=== PATIENT | female | born 1985 | race American Indian/Alaskan Native ===

== ENCOUNTER 2017-03-16 09:53 | Emergency (ER) | payer BC ==
[2017-03-16 10:26] VITALS: BP 117/80
[2017-03-16] MEDS ORDERED: NORCO 5/325 PO ONE (11:23)
[2017-03-16] MEDS ORDERED: BACTRIM DS PO ONE (11:23)
[2017-03-16] MEDS ORDERED: MARCAINE 0.5% INFILTRATI ONE (11:23)
[2017-03-16] MEDS ORDERED: KEFLEX PO ONE (11:23)
[2017-03-16] MEDS ORDERED: BOOSTRIX IM ONE (11:23)
--- NOTE | 2017-03-16 11:30 | Emergency Department Report ---
ED Extremity Problem HPI - General Chief complaint: Extremity Injury, Lower Stated complaint: RT FOOT BIG TOE REDNESS/PAIN Time Seen by Provider: 03/16/17 11:19 Source: patient, family Mode of arrival: Ambulatory Limitations: No Limitations - History of Present Illness Initial comments: PT states she has had an in grown toe nail forever. PT states for 5 days she had had pain and swelling to R great toe. PT states she has noticed drainage for 2 days. PT states she has a hx of trauma to that toe and states previously she had lost her toe nail and it did not grow back straight. PT states she had NKDA. PT states she has tried warm soaks for her toe but no improvement. MD Complaint: extremity pain -: Gradual, days(s) (5) Location: right, lower extremity, toe (great toe ) History of Same: Yes (but not as bad ) -: No fever Severity scale (0 -10): 10 Quality: constant Consistency: constant Improves with: nothing Worsens with: weight bearing, walking, other (putting on a sock ) Associated Symptoms: denies other symptoms - Related Data Previous Rx's Medication Instructions Recorded Last Taken Type Acetaminophen/Codeine [Tylenol #3] 1 tab PO Q6H PRN #12 tab 03/16/17 Unknown Rx Cephalexin [Keflex] 500 mg PO Q6HR #40 capsule 03/16/17 Unknown Rx Ibuprofen [Motrin] 600 mg PO Q8H PRN #15 tablet 03/16/17 Unknown Rx Sulfamethoxazole/Trimethoprim 1 each PO BID #20 tablet 03/16/17 Unknown Rx [Bactrim DS TAB] ED Review of Systems ROS: Stated complaint: RT FOOT BIG TOE REDNESS/PAIN Other details as noted in HPI Comment: Unobtainable due to pts medical conditions Constitutional: denies: chills, fever Gastrointestinal: denies: nausea, vomiting Genitourinary: denies: abnormal menses Musculoskeletal: as per HPI (toe pain ) Skin: change in color (redness ), other (drainage from R great toe ) ED Past Medical Hx - Surgical History Hx Cholecystectomy: Yes Additional Surgical History: Hemrroidectomy 2007, -2003, cholecytectomy 2005, hernia repair 1991 - Social History Smoking Status: Current Every Day Smoker Substance Use Type: Alcohol - Medications Home Medications: Home Medications Medication Instructions Recorded Confirmed Last Taken Type Acetaminophen/Codeine [Tylenol #3] 1 tab PO Q6H PRN #12 tab 03/16/17 Unknown Rx Cephalexin [Keflex] 500 mg PO Q6HR #40 capsule 03/16/17 Unknown Rx Ibuprofen [Motrin] 600 mg PO Q8H PRN #15 tablet 03/16/17 Unknown Rx Sulfamethoxazole/Trimethoprim 1 each PO BID #20 tablet 03/16/17 Unknown Rx [Bactrim DS TAB] ED Physical Exam - General Limitations: No Limitations General appearance: alert, in no apparent distress - Head Head exam: Present: atraumatic, normocephalic, normal inspection - Eye Eye exam: Present: normal appearance, EOMI. Absent: conjunctival injection, nystagmus - ENT ENT exam: Present: normal exam, normal external ear exam - Neck Neck exam: Present: normal inspection, full ROM - Respiratory Respiratory exam: Absent: respiratory distress, accessory muscle use - Cardiovascular Cardiovascular Exam: Present: regular rate, normal rhythm - Extremities Exam Extremities exam: Present: full ROM, tenderness, normal capillary refill. Absent: pedal edema, joint swelling - Expanded Upper Extremity Exam Left General: Present: normal inspection Right General: Present: normal inspection - Expanded Lower Extremity Exam Left Foot/Toe exam: Present: normal inspection, full ROM Neuro vascular tendon exam: Present: no vascular compromise Right Foot/Toe exam: Present: full ROM, tenderness, swelling, erythema (Swelling, erythema and tenderness to R medial great toe nail fold ). Absent: normal inspection Neuro vascular tendon exam: Present: no vascular compromise. Absent: abnormal cap refill Gait: Positive: antalgic - Back Exam Back exam: Present: normal inspection, full ROM - Neurological Exam Neurological exam: Present: alert, oriented X3 - Psychiatric Psychiatric exam: Present: normal affect, normal mood - Skin Skin exam: Present: warm, dry, intact ED Course Vital Signs 03/16/17 10:09 Temperature 98.3 F Pulse Rate 92 H Respiratory 16 Rate Blood Pressure 117/80 O2 Sat by Pulse 100 Oximetry - Reevaluation(s) Reevaluation #1: 03/16/17 11:37 PT wanting ingrown toe nail removed. Pt aware of plan of care. Reevaluation #2: 03/16/17 12:50 PT tolerated the ingrown toe nail removal. Pt given strict return precautions. PT has no questions at this time. 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 ingrown toe nail trimmed with scissors. + small amount of purulent drainage noted. Site flushed with NS. Pt tolerated the procedure well. - Pulse Oximetry Interpretation Digit-Finger Initial Pulse Oximetry Readin Actions Taken: none ED Medical Decision Making - Differential Diagnosis cellulitis, abscess, ingrown toe nail Critical Care Time: No Critical care attestation.: If time is entered above; I have spent that time in minutes in the direct care of this critically ill patient, excluding procedure time. ED Disposition Clinical Impression: Ingrowing toenail with infection Disposition: TO HOME OR SELFCARE Is pt being admited?: No Does the pt Need Aspirin: No Condition: Stable Instructions: Ingrown Nail (ED) Additional Instructions: No driving or alcohol after taking Tylenol #3 Take antibiotics as instructed Return to ED in 2 days for recheck Return sooner if increase in redness, swelling, pain or you develop fevers, chills, nausea or vomiting Prescriptions: Acetaminophen/Codeine [Tylenol #3] 1 tab PO Q6H PRN #12 tab PRN Reason: Pain , Severe (7-10) Cephalexin [Keflex] 500 mg PO Q6HR #40 capsule Ibuprofen [Motrin] 600 mg PO Q8H PRN #15 tablet PRN Reason: Pain Sulfamethoxazole/Trimethoprim [Bactrim DS TAB] 1 each PO BID #20 tablet Referrals: PRIMARY CAREMD [Primary Care Provider] - 3-5 Days NITESH TROTTER MD [Staff Physician] - 3-5 Days Forms: Work/School Release Form(ED) Time of Disposition: 12:50
[2017-03-16] MEDS ORDERED: TRIPLE ANTIBIOTIC TP ONE (12:47)
== END 2017-03-16 13:10 | disposition home or self-care (01) ==
LOC: ED 09:53
DX: L60.0 Ingrowing nail (principal); L08.89 Other specified local infections of the skin and subcutaneous tissue; F17.200 Nicotine dependence, unspecified, uncomplicated
CPT/HCPCS: 90471; 90715; A6250

== ENCOUNTER 2018-10-30 11:00 | Emergency (ER) | payer BC, OTHER ==
--- NOTE | 2018-10-30 11:11 | Emergency Department Report ---
Blank Doc - Documentation Documentation: This is a 33-year-old female that presents with URI symptoms. Stated that has chest pain only when coughing. This initial assessment/diagnostic orders/clinical plan/treatment(s) is/are subject to change based on patient's health status, clinical progression and re- assessment by fellow clinical providers in the ED. Further treatment and workup at subsequent clinical providers discretion. Patient/guardians urged not to elope from the ED as their condition may be serious if not clinically assessed and managed. Initial orders include: 1- Patient sent to [facility] for further evaluation and treatment 2- CXR
[2018-10-30 11:12] VITALS: BP 136/94
[2018-10-30] MEDS ORDERED: SOLU-Medrol IM ONE (11:44)
--- NOTE | 2018-10-30 11:44 | Emergency Department Report ---
ED General Adult HPI - General Chief complaint: Upper Respiratory Infection Stated complaint: CHEST PAIN/SOB Time Seen by Provider: 10/30/18 11:10 Source: patient Mode of arrival: Ambulatory Limitations: No Limitations - History of Present Illness Initial comments: Patient is 33 years old female with no significant past medical history. Patient stated that she was doing well until 2 months ago when she started having excessive coughing with whitish mucus. Patient stated that her symptoms is worse at night. Patient denied any fever, shortness of breath, nausea or vomiting. Patient also complaining of runny nose and congestion. Severity scale (0 -10): 0 - Related Data Previous Rx's Medication Instructions Recorded Last Taken Type Acetaminophen/Codeine [Tylenol #3] 1 tab PO Q6H PRN #12 tab 03/16/17 Unknown Rx Ibuprofen [Motrin] 600 mg PO Q8H PRN #15 tablet 03/16/17 Unknown Rx Sulfamethoxazole/Trimethoprim 1 each PO BID #20 tablet 03/16/17 Unknown Rx [Bactrim DS TAB] cephALEXin [Keflex] 500 mg PO Q6HR #40 capsule 03/16/17 Unknown Rx Allergies Allergy/AdvReac Type Severity Reaction Status Date / Time No Known Allergies Allergy Verified 10/30/18 11:02 ED Review of Systems ROS: Stated complaint: CHEST PAIN/SOB Other details as noted in HPI Comment: All other systems reviewed and negative Constitutional: denies: chills, fever Respiratory: cough. denies: orthopnea, shortness of breath, SOB with exertion, SOB at rest, wheezing Cardiovascular: denies: chest pain Gastrointestinal: denies: abdominal pain, nausea, vomiting, diarrhea, constipation, hematemesis, melena, hematochezia ED Past Medical Hx - Past Medical History Previous Medical History?: No - Surgical History Past Surgical History?: Yes Hx Cholecystectomy: Yes Additional Surgical History: Hemrroidectomy 2007, -2003, cholecytectomy 2005, hernia repair 1991 - Social History Smoking Status: Current Some Day Smoker Substance Use Type: None - Medications Home Medications: Home Medications Medication Instructions Recorded Confirmed Last Taken Type Acetaminophen/Codeine [Tylenol #3] 1 tab PO Q6H PRN #12 tab 03/16/17 Unknown Rx Ibuprofen [Motrin] 600 mg PO Q8H PRN #15 tablet 03/16/17 Unknown Rx Sulfamethoxazole/Trimethoprim 1 each PO BID #20 tablet 03/16/17 Unknown Rx [Bactrim DS TAB] cephALEXin [Keflex] 500 mg PO Q6HR #40 capsule 03/16/17 Unknown Rx ED Physical Exam - General Limitations: No Limitations General appearance: alert, in no apparent distress - Head Head exam: Present: atraumatic, normocephalic, normal inspection - Eye Eye exam: Present: normal appearance, PERRL - ENT ENT exam: Present: normal exam, normal orophraynx, mucous membranes moist - Neck Neck exam: Present: normal inspection, full ROM. Absent: tenderness, meningismus, lymphadenopathy, thyromegaly - Respiratory Respiratory exam: Present: normal lung sounds bilaterally. Absent: respiratory distress, wheezes, rales, rhonchi, chest wall tenderness, accessory muscle use, decreased breath sounds, prolonged expiratory - Cardiovascular Cardiovascular Exam: Present: regular rate, normal rhythm, normal heart sounds - GI/Abdominal GI/Abdominal exam: Present: soft, normal bowel sounds. Absent: distended, tenderness, guarding, rebound, rigid, organomegaly, mass, bruit, pulsatile mass, hernia - Extremities Exam Extremities exam: Present: normal inspection, full ROM, normal capillary refill - Back Exam Back exam: Present: normal inspection, full ROM. Absent: tenderness, CVA tenderness (R), CVA tenderness (L), muscle spasm, paraspinal tenderness, vertebral tenderness - Neurological Exam Neurological exam: Present: alert, oriented X3, CN II-XII intact, normal gait, reflexes normal - Skin Skin exam: Present: warm, intact, normal color ED Course Vital Signs 10/30/18 11:10 Temperature 98.6 F Pulse Rate 106 H Respiratory 16 Rate Blood Pressure 136/94 O2 Sat by Pulse 99 Oximetry ED Medical Decision Making - Radiology Data Radiology results: report reviewed Referring Physician: KAREN QUINTEROS Patient Name: AMINA OZUNA Date of : 1985 Sex: Female Report Date: 2018-10-30 Report Status: Finalized Findings [facility] [address] [place] [address] XRay Report Signed Patient: AMINA OZUNA MR#: [id number] : 1985 Acct:[id number] Age/Sex: 33 / F ADM Date: 10/30/18 Loc: ED Attending Dr: Ordering Physician: KAREN QUINTEROS NP Date of Service: 10/30/18 Procedure(s): XR chest routine 2V Accession Number(s): [id number] cc: KAREN QUINTEROS NP Fluoro Time In Minutes: ROUTINE CHEST, TWO VIEWS: HISTORY: Cough. The trachea, heart, mediastinal contour, lung sykes and bony thorax are unremarkable. IMPRESSION: Unremarkable chest x-ray. Transcribed By: TTR Dictated By: RICH CABALLERO JR, MD Electronically Authenticated By: RICH CABALLERO JR, MD Signed Date/Time: 10/30/181206 DD/ 06 TD/TT: 10/30/181206 Critical care attestation.: If time is entered above; I have spent that time in minutes in the direct care of this critically ill patient, excluding procedure time. ED Disposition Clinical Impression: Bronchitis Disposition: DC-01 TO HOME OR SELFCARE Is pt being admited?: No Condition: Stable Instructions: Acute Bronchitis (ED) [facility]errals: [facility] [Other] - 3-5 Days
--- NOTE | 2018-10-30 12:29 | XRay Report ---
ROUTINE CHEST, TWO VIEWS: HISTORY: Cough. The trachea, heart, mediastinal contour, lung sykes and bony thorax are unremarkable. IMPRESSION: Unremarkable chest x-ray.
== END 2018-10-30 12:44 | disposition home or self-care (01) ==
LOC: ED 11:00
DX: J40 Bronchitis, not specified as acute or chronic (principal); Z90.49 Acquired absence of other specified parts of digestive tract; F17.200 Nicotine dependence, unspecified, uncomplicated
CPT/HCPCS: 71046; 96372; 99283; J2930

== ENCOUNTER 2020-01-03 18:01 | Inpatient (IN) | payer OTHER ==
--- NOTE | 2020-01-03 18:22 | Event Note ---
ED Screening Note ED Screening Note: states that she has been vomiting for a week states she feels lightheaded states that on 12/29 she drank a pint of ETOH states she drinks 1/2 a pint a day no diarrhea states she was having dysuria PMHx none no allergies to meds LNMP: 12/15/2019 This initial assessment/diagnostic orders/clinical plan/treatment(s) is/are subject to change based on patients health status, clinical progression and re- assessment by fellow clinical providers in the ED. Further treatment and workup at subsequent clinical providers discretion. Patient/guardian urged not to elope from the ED as their condition may be serious if not clinically assessed and managed. Initial orders include: labs, UA, urine preg
[2020-01-03 18:38] LABS: Basophils % (Auto) 0.2 % (0.0-1.8); Hemoglobin 15.4 gm/dl (10.1-14.3); Lymphocytes # (Auto) 0.4 K/mm3 (1.2-5.4); Lymphocytes % (Auto) 3.5 % (13.4-35.0); Monocytes # (Auto) 1.2 K/mm3 (0.0-0.8); Monocytes % (Auto) 10.1 % (0.0-7.3)
[2020-01-03 18:54] LABS: Hematocrit 44.5 % (30.3-42.9); Mean Corpuscular HGB Conc 35 % (30-34); Mean Corpuscular Volume 110 fl (79-97); Platelet Count 119 K/mm3 (140-440); Red Blood Count 4.06 M/mm3 (3.65-5.03); Red Cell Distribution Width 18.4 % (13.2-15.2)
[2020-01-03 19:02] LABS: Alanine Aminotransferase 77 units/L (7-56); Albumin 3.7 g/dL (3.9-5); BUN/Creatinine Ratio 16; Blood Urea Nitrogen 11 mg/dL (7-17); Calcium 9.9 mg/dL (8.4-10.2); Hemolysis Index 16
[2020-01-03] MEDS ORDERED: ONDANSETRON 4 MG/2 ML INJ ONE (19:26)
[2020-01-03] MEDS ORDERED: THIAMINE 100 MG, FOLIC ACID 1 MG, MULTIPLE VITAMIN INJ, ADULT 10 ML in SODIUM CHLORIDE ... IV ONE (19:30)
[2020-01-03] MEDS ORDERED: DEXTROSE 50% IN WATER (25GM) 50 ML SYRINGE IV ONE (19:30)
[2020-01-03] MEDS ORDERED: SODIUM CHLORIDE 0.9% 1000 ML 1,000 ML IV ONE ×3 (19:30→21:24)
[2020-01-03] MEDS ORDERED: CALCIUM CHLORIDE 1,000 MG in SODIUM CHLORIDE 0.9% 100 ML IV ONE (19:30)
[2020-01-03] MEDS ORDERED: INSULIN REGULAR, HUMAN 100 UNITS/1 ML IV ONE (19:30)
[2020-01-03] MEDS ORDERED: ONDANSETRON 4 MG/2 ML INJ IV ONE (19:31)
--- NOTE | 2020-01-03 19:42 | Emergency Department Report ---
ED General Adult HPI - General Chief complaint: Nausea/Vomiting/Diarrhea Stated complaint: VOMITING PUI?: No Time Seen by Provider: 01/03/20 19:29 Source: patient Mode of arrival: Ambulatory Limitations: No Limitations - History of Present Illness Initial comments: Patient is a 34-year-old female that presents emergency room with complaints of nausea and vomiting x5 days. Patient states 4 days ago she drank a lot of alcohol and has been vomiting ever since. Patient states she thinks she has alcohol poisoning. Patient states she has not alcohol since. Patient denies chest pain. Patient denies shortness of breath. Patient complains of epigastric pain. Patient states epigastric pain is a 10 out of 10. Patient states the pain is worse with movement and vomiting. Patient states the pain is better with rest. Patient denies fever and chills. Patient denies blood in her vomitus. Patient states she drinks regularly. Patient denies seizure. Patient denies shaking. Patient denies anxiety. Patient denies recent travel. Patient denies recent international travel. Patient denies exposure to the novel coronavirus. Patient denies sick contacts. Patient denies fever and chills. Patient denies cough. Patient denies diarrhea. Patient denies coming in contact with anybody with symptoms of the novel coronavirus. -: Gradual Radiation: abdomen Severity scale (0 -10): 10 Quality: burning Consistency: constant Improves with: rest Worsens with: movement, other Associated Symptoms: nausea/vomiting. denies: confusion, chest pain, cough, diaphoresis, fever/chills, headaches, loss of appetite, malaise, rash, seizure, shortness of breath, syncope, weakness Treatments Prior to Arrival: none - Related Data Previous Rx's Medication Instructions Recorded Last Taken Type Acetaminophen/Codeine [Tylenol #3] 1 tab PO Q6H PRN #12 tab 03/16/17 Unknown Rx Ibuprofen [Motrin] 600 mg PO Q8H PRN #15 tablet 03/16/17 Unknown Rx Sulfamethoxazole/Trimethoprim 1 each PO BID #20 tablet 03/16/17 Unknown Rx [Bactrim DS TAB] cephALEXin [Keflex] 500 mg PO Q6HR #40 capsule 03/16/17 Unknown Rx Albuterol INH(or & Nicu Only) 2 puff IH QID PRN #1 inhalation 10/30/18 Unknown Rx [ProAir HFA Inhaler] Azithromycin [Zithromax Z-SHARON] 250 mg PO DAILY 1 Days tab 10/30/18 Unknown Rx Prednisone [predniSONE 10 mg 10 mg PO .TAPER #1 tab.ds.pk 10/30/18 Unknown Rx (6-Day Pack, 21 Tabs)] guaiFENesin/CODEINE [Robitussin AC] 10 ml PO TID PRN #100 ml 10/30/18 Unknown Rx Allergies Allergy/AdvReac Type Severity Reaction Status Date / Time No Known Allergies Allergy Verified 10/30/18 11:02 ED Review of Systems ROS: Stated complaint: VOMITING Other details as noted in HPI Constitutional: denies: chills, fever Eyes: denies: eye pain, eye discharge, vision change ENT: denies: ear pain, throat pain Respiratory: denies: cough, shortness of breath, wheezing Cardiovascular: denies: chest pain, palpitations Endocrine: no symptoms reported Gastrointestinal: abdominal pain, nausea, vomiting. denies: diarrhea Genitourinary: denies: urgency, dysuria, discharge Musculoskeletal: denies: back pain, joint swelling, arthralgia Skin: denies: rash, lesions Neurological: denies: headache, weakness, paresthesias Psychiatric: denies: anxiety, depression Hematological/Lymphatic: denies: easy bleeding, easy bruising ED Past Medical Hx - Past Medical History Previous Medical History?: No - Surgical History Past Surgical History?: Yes Hx Cholecystectomy: Yes Additional Surgical History: Hemrroidectomy 2007, -2003, cholecytectomy 2005, hernia repair 1991 - Family History Family history: no significant - Social History Smoking Status: Current Every Day Smoker Substance Use Type: Alcohol, Marijuana - Medications Home Medications: Home Medications Medication Instructions Recorded Confirmed Last Taken Type Acetaminophen/Codeine [Tylenol #3] 1 tab PO Q6H PRN #12 tab 03/16/17 Unknown Rx Ibuprofen [Motrin] 600 mg PO Q8H PRN #15 tablet 03/16/17 Unknown Rx Sulfamethoxazole/Trimethoprim 1 each PO BID #20 tablet 03/16/17 Unknown Rx [Bactrim DS TAB] cephALEXin [Keflex] 500 mg PO Q6HR #40 capsule 03/16/17 Unknown Rx Albuterol INH(or & Nicu Only) 2 puff IH QID PRN #1 inhalation 10/30/18 Unknown Rx [ProAir HFA Inhaler] Azithromycin [Zithromax Z-SHARON] 250 mg PO DAILY 1 Days tab 10/30/18 Unknown Rx Prednisone [predniSONE 10 mg 10 mg PO .TAPER #1 tab.ds.pk 10/30/18 Unknown Rx (6-Day Pack, 21 Tabs)] guaiFENesin/CODEINE [Robitussin AC] 10 ml PO TID PRN #100 ml 10/30/18 Unknown Rx ED Physical Exam - General Limitations: No Limitations General appearance: alert, in no apparent distress - Head Head exam: Present: atraumatic, normocephalic - Eye Eye exam: Present: normal appearance - ENT ENT exam: Present: mucous membranes moist - Neck Neck exam: Present: normal inspection - Respiratory Respiratory exam: Present: normal lung sounds bilaterally. Absent: respiratory distress - Cardiovascular Cardiovascular Exam: Present: regular rate, normal rhythm. Absent: systolic murmur, diastolic murmur, rubs, gallop - GI/Abdominal GI/Abdominal exam: Present: soft, tenderness (Epigastric tenderness to palpation.), normal bowel sounds - Extremities Exam Extremities exam: Present: normal inspection - Back Exam Back exam: Present: normal inspection - Neurological Exam Neurological exam: Present: alert, oriented X3 - Psychiatric Psychiatric exam: Present: normal affect, normal mood - Skin Skin exam: Present: warm, dry, intact, normal color. Absent: rash ED Course Vital Signs 01/03/20 01/03/20 01/03/20 18:06 19:58 20:30 Temperature 101.0 F H Pulse Rate 82 107 H Respiratory 18 18 22 Rate Blood Pressure 125/90 119/85 O2 Sat by Pulse 96 99 Oximetry - Reevaluation(s) Reevaluation #1: The nurse asked me to see the patient since the patient has a potassium of 7.7. However after I reviewed the labs the lab reported as 2.7. I will call the lab to confirm the potassium level prior to initiating treatment. 01/03/20 19:29 Potassium verified with lab and it is 2.7. Patient will be given potassium re placement and will check the mag level. 01/03/20 19:52 Reevaluation #2: I discussed all results with patient. I discussed plan of care with patient. Patient agrees with plan of care and admission. Patient to be admitted to the hospitalist service. 01/03/20 21:26 - Consultations Consultation #1: Hospitalist consulted for admission. Hospitalist to admit patient.. Bridge orders placed. 01/03/20 21:26 ED Medical Decision Making - Lab Data Result diagrams: 01/03/20 18:23 01/03/20 18:23 - Radiology Data Radiology results: report reviewed CT report reviewed and is positive for pyelonephritis. - Medical Decision Making Patient is a 34-year-old female that presents emergency room with intractable nausea vomiting, epigastric abdominal pain and alcohol abuse. Patient stated she was having alcohol poisoning due to heavy drinking 5 days ago. Patient has been vomiting since drinking 5 days ago. Patient found to be febrile and have an elevated WBC and abnormal chemistry. Patient then had a CT scan to rule out a small bowel obstruction and findings consistent with pyelonephritis were found. Patient also found to have a UTI. Patient given 2 g of Rocephin and multiple liters of fluid. Patient also given a banana bag due to her alcohol use. Patient admitted to the hospitalist service. - Differential Diagnosis Fever, UTI, intractable nausea vomiting, epigastric pain, gastritis Critical Care Time: Yes Critical care time in (mins) excluding proc time.: 35 Critical care attestation.: If time is entered above; I have spent that time in minutes in the direct care of this critically ill patient, excluding procedure time. Critical Care Time: 35 minutes ED Disposition Clinical Impression: Pyelonephritis, SIRS (systemic inflammatory response syndrome), Hyponatremia Abdominal pain Qualifiers: Abdominal location: epigastric Qualified Code(s): R10.13 - Epigastric pain Nausea & vomiting Qualifiers: Vomiting type: unspecified Vomiting Intractability: intractable Qualified Code(s): R11.2 - Nausea with vomiting, unspecified UTI (urinary tract infection) Qualifiers: Urinary tract infection type: acute cystitis Hematuria presence: with hematuria Qualified Code(s): N30.01 - Acute cystitis with hematuria Fever Qualifiers: Fever type: unspecified Qualified Code(s): R50.9 - Fever, unspecified Disposition: DC-09 OP ADMIT IP TO THIS HOSP Is pt being admited?: Yes Does the pt Need Aspirin: No Condition: Critical Time of Disposition: 21:27
--- NOTE | 2020-01-03 20:30 | Cat Scan Report ---
CT abdomen pelvis w con INDICATION: Abdominal pain, intractable nausea and vomiting . TECHNIQUE: All CT scans at this location are performed using the following dose modulation technique: Automated exposure control. Helical slices were obtained through the abdomen and pelvis following the administr ation of 100 cc of Omnipaque 300 COMPARISON: None available. FINDINGS: Abdomen: There is a calcified granuloma in the left lung base. There is fatty infiltration of the hazel er. The spleen, pancreas, right adrenal gland, and right kidney show no acute abnormality. There is a 12 mm nodule in the left adrenal gland. There is abnormal enhancement throughout the left kidney. This shows striated enhancement pattern. Th e appearance is most characteristic of pyelonephritis. There is no hydronephrosis. There are no urete ral calculi. There is no bowel obstruction. There is no free air. There are no abnormal fluid collections. There is some fluid noted in the cecum. There is no CT evidence of appendicitis there is no inflammat ion. Bowel is unremarkable. There is a 2.2 cm cyst in the left ovary. On review of bone windows, no acute osseous abnormalities are seen. IMPRESSION: There is left pyelonephritis. There is fatty infiltration of the liver. There is no obstruction or free air. There is a small left ovarian cyst. Signer Name: Kali Rivera MD Signed: 01/03/2020 8:26 PM Workstation Name: [id number]
[2020-01-03 20:35] LABS: Bilirubin,Urine MOD (Negative); Blood,Urine SM (Negative); Color,Urine Amber (Yellow); Mucus,Urine 3+ /HPF
[2020-01-03 20:37] LABS: WBC,Urine > 182.0 /HPF (0.0-6.0)
[2020-01-03 20:50] LABS: Ictotest,Urine Negative (Negative)
[2020-01-03] MEDS ORDERED: cefTRIAXone/NS 2 GM/100 ML 2 GM/100 ML BAG IV ONE (21:22)
[2020-01-03] MEDS ORDERED: HYDROmorphone 1 MG/1 ML INJ ONE (21:44)
[2020-01-03] MEDS ORDERED: HYDROmorphone 1 MG/1 ML INJ IV ONE (21:53)
[2020-01-03] MEDS: POTASSIUM CHLORIDE 10 MEQ 10 MEQ/100 ML BAG IV SCH ×2 (22:17→23:27)
[2020-01-03] MEDS ORDERED: POTASSIUM CHLORIDE 10 MEQ 10 MEQ/100 ML BAG IV ONE (23:16)
[2020-01-03] MEDS ORDERED: PIPERACILLIN/TAZOBACTAM 3.375 3.375 GM/50 ML BAG IV SCH (23:45)
[2020-01-04] MEDS: POTASSIUM CHLORIDE 10 MEQ 10 MEQ/100 ML BAG IV SCH ×9 (00:25→22:56)
[2020-01-04] MEDS: PIPERACIL/TAZOBACTA 4.5/NS 100 4.5 GM/100 ML VIAL IV SCH ×4 (00:28→21:00)
[2020-01-04] MEDS: SODIUM CHLORIDE 0.9% 1000 ML 1,000 ML IV SCH (00:30)
[2020-01-04] MEDS: ONDANSETRON 4 MG/2 ML INJ IV PRN ×3 (00:31→20:57)
[2020-01-04] MEDS: MORPHINE 2 MG/1 ML INJ IV PRN ×4 (00:31→20:56)
[2020-01-04] MEDS: HEPARIN 5,000 UNIT/1 ML VIAL SUB-Q SCH ×3 (00:31→21:00)
--- NOTE | 2020-01-04 04:55 | History and Physical Report ---
History of Present Illness Date of examination: 01/03/20 Date of admission: 01/03/20 23:36 Chief complaint: Nausea and vomiting History of present illness: 34 year old female presenting with nausea and vomting going on for about 5 days. There is history of epigastric abdominal pain . There is no fever,chills,cough,chest pain or shortness of breath. Patient admitted to drinking alcohol a lot before these symptom. Past History Past Surgical History: cholecystectomy, , hernia repair, Other (1. Hemoroidectomy 2. Dilatation and Curratage) Social history: smoking, alcohol abuse, other (marijuana) Medications and Allergies Allergies Allergy/AdvReac Type Severity Reaction Status Date / Time No Known Allergies Allergy Verified 10/30/18 11:02 Home Medications Medication Instructions Recorded Confirmed Last Taken Type No Known Home Medications [No 01/03/20 01/03/20 Unknown History Reported Home Medications] Active Meds: Active Medications Acetaminophen (Tylenol) 650 mg PO Q4H PRN PRN Reason: Fever >101 Heparin Sodium (Porcine) (Heparin) 5,000 unit SUB-Q Q12HR SUJIT Last Admin: 01/04/20 00:31 Dose: 5,000 unit Documented by: Sodium Chloride (Nacl 0.9% 1000 Ml) 1,000 mls @ 125 mls/hr IV DIRECT SUJIT Last Admin: 01/04/20 00:30 Dose: 125 mls/hr Documented by: Piperacillin Sod/Tazobactam Sod (Zosyn/Ns 4.5gm/100ml) 4.5 gm in 100 mls @ 200 mls/hr IV Q8HR SUJIT; Protocol Last Admin: 01/04/20 00:28 Dose: 200 mls/hr Documented by: Morphine Sulfate (Morphine) 2 mg IV Q4H PRN PRN Reason: Pain, Moderate (4-6) Last Admin: 01/04/20 00:31 Dose: 2 mg Documented by: Ondansetron HCl (Zofran) 4 mg IV Q8H PRN PRN Reason: Nausea And Vomiting Last Admin: 01/04/20 00:31 Dose: 4 mg Documented by: Review of Systems Constitutional: no weight loss, no weight gain, no fever, no chills, no sweats, no fatigue, no weakness, no malaise Eyes: bilateral: other (NO BILATERAL EYE SYMPTOMS) Ears, nose, mouth and throat: no ear pain, no ear discharge, no nose pain, no nasal congestion, no nasal discharge, no sinus pressure, no dental pain, no mouth pain, no dysphagia, no hoarseness, no sore throat, no swelling in mouth, no headache, no vertigo Breasts: deferred Cardiovascular: no chest pain, no palpitations, no syncope, no lightheadedness, no shortness of breath, no high blood pressure Respiratory: no cough, no excessive sputum, no hemoptysis, no shortness of breath, no dyspnea on exertion, no congestion, no wheezing, no pleurisy Gastrointestinal: abdominal pain, nausea, vomiting, no diarrhea, no constipation, no change in bowel habits, no melena, no hematochezia, no heartburn, no indigestion, no jaundice Genitourinary Female: no flank pain, no dysuria, no urinary frequency, no urgency, no stress incontinence, no post void dribbling, no hematuria Menstruation: no postmenopausal Rectal: no pain, no itching Musculoskeletal: no neck stiffness, no neck pain, no low back pain, no shooting leg pain, no muscle weakness, no muscle cramps, no myalgias, no arthritis Integumentary: no rash, no pruritis, no redness, no sores, no jaundice, no depigmentation Neurological: no paralysis, no weakness, no numbness, no seizures, no syncope, no vertigo, no headaches, no convulsions Psychiatric: no anxiety, no insomnia, no suicidal ideation, no hallucinations, no confusion Endocrine: no cold intolerance, no heat intolerance, no polydipsia, no polyuria, no nocturia, no excessive sweating, no palpatations, no high blood sugars Hematologic/Lymphatic: no easy bruising, no lymphadenopathy Exam - Constitutional Vitals: Temp Pulse Resp BP Pulse Ox 98.5 F 112 H 18 129/80 97 01/04/20 00:26 01/04/20 00:26 01/04/20 01:01 01/04/20 00:26 01/04/20 00:26 General appearance: Present: no acute distress - EENT Eyes: Present: PERRL, EOM intact ENT: hearing intact, clear oral mucosa - Neck Neck: Present: supple, normal ROM. Absent: rigidity, enlarged thyroid, carotid bruits - Respiratory Respiratory effort: normal - Cardiovascular Rhythm: regular Heart Sounds: Present: S1 & S2. Absent: gallop, systolic murmur, diastolic murmur, click - Extremities Extremities: no ischemia, No edema Peripheral Pulses: within normal limits - Abdominal General gastrointestinal: Present: soft, non-tender, non-distended. Absent: tender, distended, rigid, hepatomegaly, splenomegaly, mass Female genitourinary: Present: deferred - Rectal Rectal Exam: deferred - Integumentary Integumentary: Present: clear, warm, dry, normal turgor. Absent: erythema, jaundice - Musculoskeletal Musculoskeletal: strength equal bilaterally - Psychiatric Psychiatric: appropriate mood/affect Results - Labs CBC & Chem 7: 01/03/20 18:23 01/03/20 18:23 Labs: Laboratory Last Values WBC 12.1 K/mm3 (4.5-11.0) H 01/03/20 18: RBC 4.06 M/mm3 (3.65-5.03) 01/03/20 18: Hgb 15.4 gm/dl (10.1-14.3) H 01/03/20 18:23 Hct 44.5 % (30.3-42.9) H 01/03/20 18:23 MCV 110 fl (79-97) H 01/03/20 18:23 MCH 38 pg (28-32) H 01/03/20 18: MCHC 35 % (30-34) H 01/03/20 18: RDW 18.4 % (13.2-15.2) H 01/03/20 18: Plt Count 119 K/mm3 (140-440) L 01/03/20 18: Lymph % (Auto) 3.5 % (13.4-35.0) L 01/03/20 18: [place] % (Auto) 10.1 % (0.0-7.3) H 01/03/20 18: Eos % (Auto) 0.0 % (0.0-4.3) 01/03/20 18: Baso % (Auto) 0.2 % (0.0-1.8) 01/03/20 18: Lymph # 0.4 K/mm3 (1.2-5.4) L 01/03/20 18:23 [place] # 1.2 K/mm3 (0.0-0.8) H 01/03/20 18:23 Eos # 0.0 K/mm3 (0.0-0.4) 01/03/20 18:23 Baso # 0.0 K/mm3 (0.0-0.1) 01/03/20 18:23 Seg Neutrophils % 86.2 % (40.0-70.0) H 01/03/20 18:23 Seg Neutrophils # 10.4 K/mm3 (1.8-7.7) H 01/03/20 18:23 Sodium 128 mmol/L (137-145) L 01/03/20 18:23 Potassium 2.7 mmol/L (3.6-5.0) L* 01/03/20 18:23 Chloride 80.7 mmol/L (98-107) L 01/03/20 18:23 Carbon Dioxide 30 mmol/L (22-30) 01/03/20 18:23 Anion Gap 20 mmol/L 01/03/20 18:23 BUN 11 mg/dL (7-17) 01/03/20 18:23 Creatinine 0.7 mg/dL (0.7-1.2) 01/03/20 18:23 Estimated GFR > 60 ml/min 01/03/20 18:23 BUN/Creatinine Ratio 16 % 01/03/20 18:23 Glucose 135 mg/dL (65-100) H 01/03/20 18:23 Calcium 9.9 mg/dL (8.4-10.2) 01/03/20 18:23 Magnesium 1.80 mg/dL (1.7-2.3) 01/03/20 18:23 Total Bilirubin 1.90 mg/dL (0.1-1.2) H 01/03/20 18:23 AST 54 units/L (5-40) H 01/03/20 18:23 ALT 77 units/L (7-56) H 01/03/20 18:23 Alkaline Phosphatase 115 units/L (35-129) 01/03/20 18:23 Total Protein 7.9 g/dL (6.3-8.2) 01/03/20 18:23 Albumin 3.7 g/dL (3.9-5) L 01/03/20 18:23 Albumin/Globulin Ratio 0.9 % 01/03/20 18:23 Lipase 17 units/L (13-60) 01/03/20 18:23 HCG, Qual Negative (Negative) 01/03/20 18:23 Urine Color Krys (Yellow) 01/03/20 Unknown Urine Turbidity Cloudy (Clear) 01/03/20 Unknown Urine pH 5.0 (5.0-7.0) 01/03/20 Unknown Ur Specific [place] 1.026 (1.003-1.030) 01/03/20 Unknown Urine Protein 100 mg/dl mg/dL (Negative) 01/03/20 Unknown Urine Glucose (UA) Neg mg/dL (Negative) 01/03/20 Unknown Urine Ketones Tr mg/dL (Negative) 01/03/20 Unknown Urine Blood Sm (Negative) 01/03/20 Unknown Urine Nitrite Neg (Negative) 01/03/20 Unknown Urine Bilirubin Mod (Negative) 01/03/20 Unknown Urine Ictotest Negative (Negative) 01/03/20 Unknown Urine Urobilinogen 4.0 mg/dL (<2.0) 01/03/20 Unknown Ur Leukocyte Esterase Sm (Negative) 01/03/20 Unknown Urine WBC (Auto) > 182.0 /HPF (0.0-6.0) H 01/03/20 Unknown Urine RBC (Auto) 19.0 /HPF (0.0-6.0) 01/03/20 Unknown U Epithel Cells (Auto) 1.0 /HPF (0-13.0) 01/03/20 Unknown Urine Mucus 3+ /HPF 01/03/20 Unknown Plasma/Serum Alcohol < 0.01 % (0-0.07) 01/03/20 18:28 Swan/IV: IV Catheter Type [Left Forearm INT / Saline Lock ] Assessment and Plan - Patient Problems (1) Abdominal pain Current Visit: Yes Status: Acute Qualifiers: Abdominal location: epigastric Plan to address problem: 1 Pain control with I.V Morphine and I.V zofran (2) Nausea & vomiting Current Visit: Yes Status: Acute Qualifiers: Vomiting type: unspecified Vomiting Intractability: intractable Qualified Code(s): R11.2 - Nausea with vomiting, unspecified Plan to address problem: 1. I.V Zofran PRN nausea and vomiting . 2. I.V fluids (3) Pyelonephritis Current Visit: Yes Status: Acute Plan to address problem: 1. I.V Zosyn Antibiotic 2. I.V Normal saline Fluids 3. Po Tylenol for fever and headache 4. I.V morphine for pain and I.V zofran for nausea and vomiting (4) UTI (urinary tract infection) Current Visit: Yes Status: Acute Qualifiers: Urinary tract infection type: acute cystitis Hematuria presence: with hematuria Qualified Code(s): N30.01 - Acute cystitis with hematuria Plan to address problem: I.V Zosyn antibiotic (5) Hypokalemia Current Visit: Yes Status: Acute Plan to address problem: 1. Potassium replacement with I.V KCL 2. BMP mornitoring (6) Hyponatremia Current Visit: Yes Status: Acute Plan to address problem: 1. I.V Normal saline infusion 2. BMP mornitoring
[2020-01-04 06:08] LABS: BUN/Creatinine Ratio 13; Blood Urea Nitrogen 8 mg/dL (7-17); Calcium 8.1 mg/dL (8.4-10.2); Hemolysis Index 13
[2020-01-04] MEDS ORDERED: POTASSIUM CHLORIDE ER 20 MEQ TAB PO ONE (06:42)
--- NOTE | 2020-01-04 08:21 | Progress Note ---
Assessment and Plan Assessment and plan: Patient is a 34-year-old female that presents emergency room with complaints of nausea and vomiting x5 days. Patient states 4 days ago she drank a lot of alcohol and has been vomiting ever since. Patient states she thinks she has alcohol poisoning. Patient states she has not alcohol since. Patient denies chest pain. Patient denies shortness of breath. Patient complains of epigastric pain. Patient states epigastric pain is a 10 out of 10. Patient states the pain is worse with movement and vomiting. Patient states the pain is better with rest. Patient denies fever and chills. Patient denies blood in her vomitus. Patient states she drinks regularly. Patient denies seizure. Patient denies shaking. Patient denies anxiety. Patient denies recent travel. Patient denies recent international travel. Patient denies exposure to the novel coronavirus. Patient denies sick contacts. Patient denies fever and chills. Patient denies cough. Patient denies diarrhea. Patient denies coming in contact with anybody with symptoms of the novel coronavirus. 01/04/2020. Patient reports improvement in nausea vomiting wants to start trying p.o. intakes. Continue antibiotics. Await cultures. Will check chest x-ray to rule out any other pathology. Patient denies any contact with anyone with novel coronavirus. 15 minutes of counseling provided on need to quit EtOH use. Continue current therapy as outlined in the H&P. Replace electrolytes. If repeated fever will likely need further work-up and possible ID consultation. Initiate CIWA protocol Sepsis likely secondary to acute pyelonephritis EtOH abuse Gastroenteritis likely secondary to EtOH abuse Intractable nausea vomiting Hypokalemia Thrombocytopenia Hyperbilirubinemia Hyponatremia now improving History Interval history: Patient seen and examined reports no new abdominal pain. Requesting to eat. Hospitalist Physical - Constitutional Vitals: Temp Pulse Resp BP Pulse Ox 100.0 F H 99 H 20 116/69 95 01/04/20 05:30 01/04/20 05:30 01/04/20 05:30 01/04/20 05:30 01/04/20 05:30 General appearance: Present: no acute distress, well-nourished - EENT Eyes: Present: PERRL, EOM intact - Neck Neck: Present: supple, normal ROM - Respiratory Respiratory effort: normal Respiratory: bilateral: CTA - Cardiovascular Rhythm: regular Heart Sounds: Present: S1 & S2. Absent: systolic murmur - Extremities Extremities: no ischemia, pulses intact, No edema, Full ROM Peripheral Pulses: within normal limits - Abdominal General gastrointestinal: soft, non-tender, non-distended, normal bowel sounds - Integumentary Integumentary: Present: clear, warm - Psychiatric Psychiatric: appropriate mood/affect, intact judgment & insight, cooperative - Neurologic Neurologic: CNII-XII intact, moves all extremities - Allied Health Allied health notes reviewed: nursing Results - Labs CBC & Chem 7: 01/03/20 18:23 01/04/20 12:56 Labs: Laboratory Last Values WBC 12.1 K/mm3 (4.5-11.0) H 01/03/20 18: RBC 4.06 M/mm3 (3.65-5.03) 01/03/20 18: Hgb 15.4 gm/dl (10.1-14.3) H 01/03/20 18:23 Hct 44.5 % (30.3-42.9) H 01/03/20 18:23 MCV 110 fl (79-97) H 01/03/20 18:23 MCH 38 pg (28-32) H 01/03/20 18:23 MCHC 35 % (30-34) H 01/03/20 18: RDW 18.4 % (13.2-15.2) H 01/03/20 18:23 Plt Count 119 K/mm3 (140-440) L 01/03/20 18:23 Lymph % (Auto) 3.5 % (13.4-35.0) L 01/03/20 18: [place] % (Auto) 10.1 % (0.0-7.3) H 01/03/20 18: Eos % (Auto) 0.0 % (0.0-4.3) 01/03/20 18: Baso % (Auto) 0.2 % (0.0-1.8) 01/03/20 18: Lymph # 0.4 K/mm3 (1.2-5.4) L 01/03/20 18:23 [place] # 1.2 K/mm3 (0.0-0.8) H 01/03/20 18: Eos # 0.0 K/mm3 (0.0-0.4) 01/03/20 18:23 Baso # 0.0 K/mm3 (0.0-0.1) 01/03/20 18:23 Seg Neutrophils % 86.2 % (40.0-70.0) H 01/03/20 18:23 Seg Neutrophils # 10.4 K/mm3 (1.8-7.7) H 01/03/20 18:23 Sodium 134 mmol/L (137-145) L 01/04/20 05:24 Potassium 2.6 mmol/L (3.6-5.0) L* 01/04/20 05:24 Chloride 94.4 mmol/L (98-107) L 01/04/20 05:24 Carbon Dioxide 23 mmol/L (22-30) D 01/04/20 05:24 Anion Gap 19 mmol/L 01/04/20 05:24 BUN 8 mg/dL (7-17) 01/04/20 05:24 Creatinine 0.6 mg/dL (0.7-1.2) L 01/04/20 05:24 Estimated GFR > 60 ml/min 01/04/20 05:24 BUN/Creatinine Ratio 13 % 01/04/20 05:24 Glucose 83 mg/dL (65-100) 01/04/20 05:24 Calcium 8.1 mg/dL (8.4-10.2) L D 01/04/20 05:24 Magnesium 1.80 mg/dL (1.7-2.3) 01/03/20 18:23 Total Bilirubin 1.90 mg/dL (0.1-1.2) H 01/03/20 18:23 AST 54 units/L (5-40) H 01/03/20 18:23 ALT 77 units/L (7-56) H 01/03/20 18:23 Alkaline Phosphatase 115 units/L (35-129) 01/03/20 18:23 Total Protein 7.9 g/dL (6.3-8.2) 01/03/20 18:23 Albumin 3.7 g/dL (3.9-5) L 01/03/20 18:23 Albumin/Globulin Ratio 0.9 % 01/03/20 18:23 Lipase 17 units/L (13-60) 01/03/20 18:23 HCG, Qual Negative (Negative) 01/03/20 18:23 Urine Color Krys (Yellow) 01/03/20 Unknown Urine Turbidity Cloudy (Clear) 01/03/20 Unknown Urine pH 5.0 (5.0-7.0) 01/03/20 Unknown Ur Specific [place] 1.026 (1.003-1.030) 01/03/20 Unknown Urine Protein 100 mg/dl mg/dL (Negative) 01/03/20 Unknown Urine Glucose (UA) Neg mg/dL (Negative) 01/03/20 Unknown Urine Ketones Tr mg/dL (Negative) 01/03/20 Unknown Urine Blood Sm (Negative) 01/03/20 Unknown Urine Nitrite Neg (Negative) 01/03/20 Unknown Urine Bilirubin Mod (Negative) 01/03/20 Unknown Urine Ictotest Negative (Negative) 01/03/20 Unknown Urine Urobilinogen 4.0 mg/dL (<2.0) 01/03/20 Unknown Ur Leukocyte Esterase Sm (Negative) 01/03/20 Unknown Urine WBC (Auto) > 182.0 /HPF (0.0-6.0) H 01/03/20 Unknown Urine RBC (Auto) 19.0 /HPF (0.0-6.0) 01/03/20 Unknown U Epithel Cells (Auto) 1.0 /HPF (0-13.0) 01/03/20 Unknown Urine Mucus 3+ /HPF 01/03/20 Unknown Plasma/Serum Alcohol < 0.01 % (0-0.07) 01/03/20 18:28 Swan/IV: Voiding Method Toilet IV Catheter Type [Left Forearm INT / Saline Lock ] Active Medications - Current Medications Current Medications: Generic Name Dose Route Start Last Admin Trade Name Freq PRN Reason Stop Dose Admin Acetaminophen 650 mg 01/03/20 23:41 Tylenol PO Q4H PRN Fever >101 Heparin Sodium (Porcine) 5,000 unit 01/03/20 23:45 01/04/20 00:31 Heparin SUB-Q 5,000 unit Q12HR SUJIT Administration Sodium Chloride 1,000 mls @ 125 mls/hr 01/03/20 23:45 01/04/20 00:30 Nacl 0.9% 1000 Ml IV 125 mls/hr DIRECT SUJIT Administration Piperacillin Sod/Tazobactam Sod 4.5 gm in 100 mls @ 200 mls/hr 01/03/20 23:45 01/04/20 05:40 Zosyn/Ns 4.5gm/100ml IV 200 mls/hr Q8HR SUJIT Administration Protocol Morphine Sulfate 2 mg 01/03/20 23:39 01/04/20 07:45 Morphine IV 2 mg Q4H PRN Administration Pain, Moderate (4-6) Ondansetron HCl 4 mg 01/03/20 23:40 01/04/20 00:31 Zofran IV 4 mg Q8H PRN Administration Nausea And Vomiting
[2020-01-04] MEDS ORDERED: LORazepam 2 MG/ML VIAL IV PRN ×2 (08:24)
--- NOTE | 2020-01-04 09:25 | XRay Report ---
CHEST 1 VIEW 01/04/2020 9:03 AM INDICATION / CLINICAL INFORMATION: sepsis. COMPARISON: 2 views of the chest from 10/30/2018. FINDINGS: SUPPORT DEVICES: None. HEART / MEDIASTINUM: No significant abnormality. LUNGS / PLEURA: No significant pulmonary or pleural abnormality. No pneumothorax. ADDITIONAL FINDINGS: No significant additional findings. IMPRESSION: 1. No acute abnormality of the chest. Signer Name: Raffaele Whiting MD Signed: 01/04/2020 9:21 AM Workstation Name: [id number]
[2020-01-04] MEDS ORDERED: MAGNESIUM SULFATE 1 GM in SODIUM CHLORIDE 0.9% 50 ML IV ONE (09:30)
[2020-01-04 11:33] LABS: BUN/Creatinine Ratio 15; Blood Urea Nitrogen 9 mg/dL (7-17); Calcium 8.1 mg/dL (8.4-10.2); Hemolysis Index 4
[2020-01-04 14:12] LABS: Alanine Aminotransferase 58 units/L (7-56); BUN/Creatinine Ratio 13; Blood Urea Nitrogen 8 mg/dL (7-17); Calcium 8.4 mg/dL (8.4-10.2); Hemolysis Index 6
[2020-01-04] MEDS ORDERED: POTASSIUM CHLORIDE ER 20 MEQ TAB PO NR (14:44)
[2020-01-04] MEDS: ACETAMINOPHEN 325 MG TAB PO PRN (16:23)
[2020-01-04] MEDS ORDERED: LIP THERAPY VASELINE TP PRN (16:30)
[2020-01-05] MEDS: POTASSIUM CHLORIDE 10 MEQ 10 MEQ/100 ML BAG IV SCH ×5 (00:11→13:52)
[2020-01-05] MEDS: SODIUM CHLORIDE 0.9% 1000 ML 1,000 ML IV SCH ×2 (01:01→17:02)
[2020-01-05] MEDS: MORPHINE 2 MG/1 ML INJ IV PRN ×5 (01:05→22:34)
[2020-01-05 05:25] LABS: Mean Corpuscular HGB Conc 35 % (30-34); Mean Corpuscular Volume 113 fl (79-97); Platelet Count 130 K/mm3 (140-440); Red Blood Count 2.79 M/mm3 (3.65-5.03); Red Cell Distribution Width 19.2 % (13.2-15.2)
[2020-01-05 05:33] LABS: Hematocrit 31.5 % (30.3-42.9); Hemoglobin 11.1 gm/dl (10.1-14.3)
[2020-01-05 05:50] LABS: Alanine Aminotransferase 51 units/L (7-56); Albumin 2.6 g/dL (3.9-5); BUN/Creatinine Ratio 6; Blood Urea Nitrogen 3 mg/dL (7-17); Calcium 8.3 mg/dL (8.4-10.2); Hemolysis Index 6
[2020-01-05] MEDS: PIPERACIL/TAZOBACTA 4.5/NS 100 4.5 GM/100 ML VIAL IV SCH (06:15)
[2020-01-05] MEDS: ACETAMINOPHEN 325 MG TAB PO PRN ×2 (06:15→17:02)
--- NOTE | 2020-01-05 08:30 | Progress Note ---
Assessment and Plan Assessment and plan: Patient is a 34-year-old female that presents emergency room with complaints of nausea and vomiting x5 days. Patient states 4 days ago she drank a lot of alcohol and has been vomiting ever since. Patient states she thinks she has alcohol poisoning. Patient states she has not alcohol since. Patient denies chest pain. Patient denies shortness of breath. Patient complains of epigastric pain. Patient states epigastric pain is a 10 out of 10. Patient states the pain is worse with movement and vomiting. Patient states the pain is better with rest. Patient denies fever and chills. Patient denies blood in her vomitus. Patient states she drinks regularly. Patient denies seizure. Patient denies shaking. Patient denies anxiety. Patient denies recent travel. Patient denies recent international travel. Patient denies exposure to the novel coronavirus. Patient denies sick contacts. Patient denies fever and chills. Patient denies cough. Patient denies diarrhea. Patient denies coming in contact with anybody with symptoms of the novel coronavirus. 01/04/2020. Patient reports improvement in nausea vomiting wants to start trying p.o. intakes. Continue antibiotics. Await cultures. Will check chest x-ray to rule out any other pathology. Patient denies any contact with anyone with novel coronavirus. 15 minutes of counseling provided on need to quit EtOH use. Continue current therapy as outlined in the H&P. Replace electrolytes. If repeated fever will likely need further work-up and possible ID consultation. Initiate CIWA protocol 01/04: Persistent fever likely secondary to pyelonephritis. Will have ID evaluate the patient. Obtain urine culture if not already obtained. Advance diet as tolerated. Again counseled on alcohol abuse reemphasized. Replace potassium. Sepsis likely secondary to acute pyelonephritis EtOH abuse Gastroenteritis likely secondary to EtOH abuse Intractable nausea vomiting Moderate protein calorie malnutrition Hypokalemia Thrombocytopenia Hyperbilirubinemia Hyponatremia now improving History Interval history: Patient seen and examined reports no new abdominal pain. Overnight still with i ntermittent fever. Hospitalist Physical - Physical exam Narrative exam: VITAL SIGNS: Reviewed. GENERAL: The patient appears normally developed, Vital signs as documented. HEAD: No signs of head trauma. EYES: Pupils are equal. Extraocular motions intact. EARS: Hearing grossly intact. MOUTH: Oropharynx is normal. NECK: No adenopathy, no JVD. CHEST: Chest with clear breath sounds bilaterally. No wheezes, rales, or rhonchi. CARDIAC: Regular rate and rhythm. S1 and S2, without murmurs, gallops, or rubs. VASCULAR: No Edema. Peripheral pulses normal and equal in all extremities. ABDOMEN: Soft, non tender and non distended. No rebound or guarding, and no masses palpated. Bowel Sounds normal. MUSCULOSKELETAL: Good range of motion of all major joints. Extremities without clubbing, cyanosis or edema. NEUROLOGIC EXAM: Alert and oriented x 3 No focal sensory or strength deficits. Speech normal. Follows commands. PSYCHIATRIC: Mood normal. SKIN: detial exam as documented in skin assessment - Constitutional Vitals: Temp Pulse Resp BP Pulse Ox 100.2 F H 80 16 114/72 100 01/05/20 05:41 01/05/20 05:41 01/05/20 05:41 01/05/20 05:41 01/05/20 05:41 General appearance: Present: no acute distress, well-nourished Results - Labs CBC & Chem 7: 01/05/20 04:15 01/05/20 04:15 Labs: Laboratory Last Values WBC 6.1 K/mm3 (4.5-11.0) 01/05/20 04:15 RBC 2.79 M/mm3 (3.65-5.03) L 01/05/20 04:15 Hgb 11.1 gm/dl (10.1-14.3) D 01/05/20 04:15 Hct 31.5 % (30.3-42.9) D 01/05/20 04:15 MCV 113 fl (79-97) H 01/05/20 04:15 MCH 40 pg (28-32) H 01/05/20 04:15 MCHC 35 % (30-34) H 01/05/20 04:15 RDW 19.2 % (13.2-15.2) H 01/05/20 04:15 Plt Count 130 K/mm3 (140-440) L 01/05/20 04:15 Lymph % (Auto) 3.5 % (13.4-35.0) L 01/03/20 18:23 [place] % (Auto) 10.1 % (0.0-7.3) H 01/03/20 18:23 Eos % (Auto) 0.0 % (0.0-4.3) 01/03/20 18: Baso % (Auto) 0.2 % (0.0-1.8) 01/03/20 18: Lymph # 0.4 K/mm3 (1.2-5.4) L 01/03/20 18:23 [place] # 1.2 K/mm3 (0.0-0.8) H 01/03/20 18: Eos # 0.0 K/mm3 (0.0-0.4) 01/03/20 18: Baso # 0.0 K/mm3 (0.0-0.1) 01/03/20 18: Seg Neutrophils % 86.2 % (40.0-70.0) H 01/03/20 18: Seg Neutrophils # 10.4 K/mm3 (1.8-7.7) H 01/03/20 18:23 Sodium 134 mmol/L (137-145) L 01/05/20 04:15 Potassium 3.1 mmol/L (3.6-5.0) L 01/05/20 04:15 Chloride 98.3 mmol/L (98-107) 01/05/20 04:15 Carbon Dioxide 22 mmol/L (22-30) 01/05/20 04:15 Anion Gap 17 mmol/L 01/05/20 04:15 BUN 3 mg/dL (7-17) L 01/05/20 04:15 Creatinine 0.5 mg/dL (0.7-1.2) L 01/05/20 04:15 Estimated GFR > 60 ml/min 01/05/20 04:15 BUN/Creatinine Ratio 6 % 01/05/20 04:15 Glucose 99 mg/dL (65-100) 01/05/20 04:15 Calcium 8.3 mg/dL (8.4-10.2) L 01/05/20 04:15 Phosphorus 1.80 mg/dL (2.5-4.5) L 01/04/20 10:25 Magnesium 1.80 mg/dL (1.7-2.3) 01/03/20 18:23 Total Bilirubin 1.20 mg/dL (0.1-1.2) 01/05/20 04:15 AST 63 units/L (5-40) H 01/05/20 04:15 ALT 51 units/L (7-56) 01/05/20 04:15 Alkaline Phosphatase 68 units/L (35-129) 01/05/20 04:15 Total Protein 4.9 g/dL (6.3-8.2) L 01/05/20 04:15 Albumin 2.6 g/dL (3.9-5) L 01/05/20 04:15 Albumin/Globulin Ratio 1.1 % 01/05/20 04:15 Lipase 17 units/L (13-60) 01/03/20 18:23 HCG, Qual Negative (Negative) 01/03/20 18:23 Urine Color Krys (Yellow) 01/03/20 Unknown Urine Turbidity Cloudy (Clear) 01/03/20 Unknown Urine pH 5.0 (5.0-7.0) 01/03/20 Unknown Ur Specific [place] 1.026 (1.003-1.030) 01/03/20 Unknown Urine Protein 100 mg/dl mg/dL (Negative) 01/03/20 Unknown Urine Glucose (UA) Neg mg/dL (Negative) 01/03/20 Unknown Urine Ketones Tr mg/dL (Negative) 01/03/20 Unknown Urine Blood Sm (Negative) 01/03/20 Unknown Urine Nitrite Neg (Negative) 01/03/20 Unknown Urine Bilirubin Mod (Negative) 01/03/20 Unknown Urine Ictotest Negative (Negative) 01/03/20 Unknown Urine Urobilinogen 4.0 mg/dL (<2.0) 01/03/20 Unknown Ur Leukocyte Esterase Sm (Negative) 01/03/20 Unknown Urine WBC (Auto) > 182.0 /HPF (0.0-6.0) H 01/03/20 Unknown Urine RBC (Auto) 19.0 /HPF (0.0-6.0) 01/03/20 Unknown U Epithel Cells (Auto) 1.0 /HPF (0-13.0) 01/03/20 Unknown Urine Mucus 3+ /HPF 01/03/20 Unknown Plasma/Serum Alcohol < 0.01 % (0-0.07) 01/03/20 18:28 Swan/IV: Voiding Method Toilet IV Catheter Type [Left Forearm INT / Saline Lock ] Active Medications - Current Medications Current Medications: Generic Name Dose Route Start Last Admin Trade Name Freq PRN Reason Stop Dose Admin Acetaminophen 650 mg 01/03/20 23:41 01/05/20 06:15 Tylenol PO 650 mg Q4H PRN Administration Fever >101 Heparin Sodium (Porcine) 5,000 unit 01/03/20 23:45 01/04/20 21:00 Heparin SUB-Q 5,000 unit Q12HR SUJIT Administration Hydrophilic Ointment 1 applic 01/04/20 16:30 Vaseline Lip Therapy TP DIRECT PRN Dry Lips Sodium Chloride 1,000 mls @ 125 mls/hr 01/03/20 23:45 01/05/20 01:01 Nacl 0.9% 1000 Ml IV 125 mls/hr DIRECT SUJIT Administration Potassium Chloride 10 meq in 100 mls @ 100 mls/hr 01/05/20 09:00 Kcl 10meq/100ml IV 01/05/20 12:59 Q1H SUJIT Cefepime HCl 2 gm in 100 mls @ 200 mls/hr 01/05/20 09:00 Cefepime/Ns 2 Gm/100 Ml IV Q8HR SUJIT Protocol Lorazepam 2 mg 01/04/20 08:24 Ativan IV Q1H PRN CIWA-Ar 8-15 Lorazepam 4 mg 01/04/20 08:24 Ativan IV Q1H PRN CIWA-Ar 16-25 Morphine Sulfate 2 mg 01/03/20 23:39 01/05/20 01:05 Morphine IV 2 mg Q4H PRN Administration Pain, Moderate (4-6) Ondansetron HCl 4 mg 01/03/20 23:40 01/04/20 20:57 Zofran IV 4 mg Q8H PRN Administration Nausea And Vomiting Nutrition/Malnutrition Assess - Dietary Evaluation Nutrition/Malnutrition Findings: Nutrition Notes Start: 01/04/20 12:12 Freq: Status: Active Protocol: Document 01/04/20 12:12 LM (Rec: 01/04/20 12:24 LM [id number]) Nutrition Notes Need for Assessment generated from: test analyst,MST,Low BMI Initial or Follow up Assessment Other Pertinent Diagnosis Pyelonephritis, UTI Current Diet Full liquid Labs/Tests Na 134 K 2.6 Pertinent Medications Zofran NaCl at 125ml/hr Height 5 ft 8 in Weight 51.25 kg Usual Body Weight 60 kg [place] Body Weight (kg) 63.63 BMI 17.2 Weight change and time frame 14% wt loss in 2.5 weeks Weight Status Underweight Subjective/Other Information RN screen for MST and low BMI screen. Pt stated she was not eating well for 2 weeks at home and experienced N/V. Pt is no longer having N/V. Pt stated she has lost 20 lb in 2 .5 weeks. Pt did not have diet order at time of visit but was given broth and juice and tolerated it well. Pt would like Ensure clear only. Pt does not like milk based drinks. Burn Absent Trauma Absent GI Symptoms None Minimum of two criteria Yes Energy Intake (non-severe) <75% Estimated Energy Requirement >7 days Interpretation of Weight Loss (severe) >2% in 1 week #1 Nutrition Diagnosis Malnutrition Etiology Pyelonephritis, UTI As Evidenced by Signs and Symptoms pt with 14% wt loss in 2.5 weeks, poor intakes for 2 weeks Is patient on ventilator? No Is Patient Ambulatory and/or Out of Bed Yes REE-([facility]-ambulatory/OOB) [ 1626.300 [id number]] Kcal/Kg value to use for calculation 38 Approximate Energy Requirements Using 1948 kcal/Kg Calculation Used for Recommendations Kcal/kg Additional Notes Protein: 61-77g (1.2-1.5g/kg) Fluid: 1ml/kcal Nutrition Intervention Change Diet Order: continue full liquid as tolerated Add Supplement/Snack (indicate name/kcal Ensure Clear BID /protein ) Provides kCal: 480 Provides Protein (gm) 16 Goal #1 diet advancement when medically feasible Anticipated Discharge Needs: regular diet Follow-Up By: 01/06/20 Additional Comments F/U for diet advancement, intakes
[2020-01-05] MEDS ORDERED: CEFEPIME/NS 2 GM/100 ML 2 GM/100 ML BAG IV SCH (09:00)
[2020-01-05] MEDS: HEPARIN 5,000 UNIT/1 ML VIAL SUB-Q SCH ×2 (09:34→22:35)
[2020-01-05] MEDS: CEFEPIME/NS 1 GM/100 ML 1 GM/100 ML BAG IV SCH ×2 (09:36→17:01)
--- NOTE | 2020-01-05 11:54 | Consultation ---
History of Present Illness - Reason for Consult Consult date: 01/05/20 acute pyelonephritis Requesting physician: DAWIT CHAVARRIA - History of Present Illness 34 y/o female with history of ETOH use, admitted on due to 4-day history of nausea, vomiting and epigastric abdominal pain associated with dysuria and incontinence. Patient has been drinking alcohol heavily, she thought the symptoms were due to alcohol poisoning. Patient denies any previous history of UTIs or kidney stones. She is for several years. On arrival, temperature 101, HR 107, RR 18, BP 126/90. Initial WBC 12.1. Platelets 119. Sodium 129. K2.7. Creatinine 0.7. AST 54. ALT 77. WBC 1.9. Urinalysis with 22 WBCs as well. X-ray showed no acute changes. Review of Systems: positive in bold print General: fever, chills, malaise Cutaneous: rash, pruritus Head: headaches or injury Eyes: changes in vision, eye pain, double vision Ears: ear pain, ear discharge, ringing or hearing loss Nose: nose bleeding, stuffiness Mouth & throat: bleeding gums, horseness, no dental problems, or swollen glands Neck: no pain, node enlargement/lumps, tyroid enlargement or tenderness Respiratory: SOB, cough, VITAL, wheezing, sputum, hemoptysis, pleuritic chest p ain Cardiovascular: chest pain, leg edema, cyanosis, VITAL, orthopnea Musculoskeletal: edema, deformities, pain Gastrointestinal: nausea, vomiting, epigastric abdominal pain, hematemesis, diarrhea, constipation, melena, bright red blood in stools, fecal incontinence, jaundice Genitourinary/Reproductive: frequent urination, dysuria, hematuria, incontinence Neurogical: seizures, headaches, weakness, paresthesias, loss of speech or vision; memory loss, vertigo, tremors, numbness Psychiatric: stable mood; excessive anxiety, sadness or moodiness Past History Past Surgical History: cholecystectomy, , hernia repair, Other (1. Hemoroidectomy 2. Dilatation and Curratage) Social history: smoking, alcohol abuse, other (marijuana) Medications and Allergies Allergies Allergy/AdvReac Type Severity Reaction Status Date / Time No Known Allergies Allergy Verified 10/30/18 11:02 Home Medications Medication Instructions Recorded Confirmed Last Taken Type No Known Home Medications [No 01/03/20 01/03/20 Unknown History Reported Home Medications] Active Meds: Active Medications Acetaminophen (Tylenol) 650 mg PO Q4H PRN PRN Reason: Fever >101 Last Admin: 01/05/20 06:15 Dose: 650 mg Documented by: Heparin Sodium (Porcine) (Heparin) 5,000 unit SUB-Q Q12HR SUJIT Last Admin: 01/05/20 09:34 Dose: 5,000 unit Documented by: Hydrophilic Ointment (Vaseline Lip Therapy) 1 applic TP DIRECT PRN PRN Reason: Dry Lips Sodium Chloride (Nacl 0.9% 1000 Ml) 1,000 mls @ 125 mls/hr IV DIRECT SUJIT Last Admin: 01/05/20 01:01 Dose: 125 mls/hr Documented by: Potassium Chloride (Kcl 10meq/100ml) 10 meq in 100 mls @ 100 mls/hr IV Q1H SUJIT Stop: 01/05/20 12:59 Last Admin: 01/05/20 10:50 Dose: 100 mls/hr Documented by: Cefepime HCl (Cefepime/Ns 1 Gm/100 Ml) 1 gm in 100 mls @ 200 mls/hr IV Q8H SJUIT; Protocol Last Admin: 01/05/20 09:36 Dose: 200 mls/hr Documented by: Lorazepam (Ativan) 2 mg IV Q1H PRN PRN Reason: CIWA-Ar 8-15 Lorazepam (Ativan) 4 mg IV Q1H PRN PRN Reason: CIWA-Ar 16-25 Morphine Sulfate (Morphine) 2 mg IV Q4H PRN PRN Reason: Pain, Moderate (4-6) Last Admin: 01/05/20 09:35 Dose: 2 mg Documented by: Ondansetron HCl (Zofran) 4 mg IV Q8H PRN PRN Reason: Nausea And Vomiting Last Admin: 01/04/20 20:57 Dose: 4 mg Documented by: Physical Examination - Physical Exam Narrative exam: General appearance: Alert in NAD Eyes: anicteric sclerae, moist conjunctivae; no lid-lag; PERRLA HENT: Atraumatic; oropharynx clear with moist mucous membranes and no oral thrush; normal hard and soft palate. Lungs: CTA, with normal respiratory effort and no intercostal retractions CV: RRR no murmur Abdomen: Soft, non-tender; no masses or hepatosplenomegaly Extremities: no edema, no cyanosis Skin: No rash. Psych: Appropriate affect, alert and oriented to person, place and time. Neuro: alert and oriented x 3. Moving all extermities - Constitutional Vitals: Vital Signs Temp Pulse Resp BP Pulse Ox 100.2 F H 80 16 114/72 100 01/05/20 05:41 01/05/20 05:41 01/05/20 05:41 01/05/20 05:41 01/05/20 05:41 Temperature -Last 24 Hours Temperature 100.2 F Temperature 100.2 F Temperature 99.2 F Temperature 99.2 F Temperature 99.3 F Temperature 101.0 F Temperature 99.9 F Temperature 99.9 F Results - Labs CBC & Chem 7: 01/05/20 04:15 01/05/20 04:15 Labs: Abnormal lab results 01/04/20 01/05/20 01/05/20 Range/Units 12:56 04:15 04:15 RBC 2.79 L (3.65-5.03) M/mm3 MCV 113 H (79-97) fl MCH 40 H (28-32) pg MCHC 35 H (30-34) % RDW 19.2 H (13.2-15.2) % Plt Count 130 L (140-440) K/mm3 Sodium 134 L 134 L (137-145) mmol/L Potassium 3.0 L 3.1 L (3.6-5.0) mmol/L Chloride 93.0 L (98-107) mmol/L BUN 3 L (7-17) mg/dL Creatinine 0.6 L 0.5 L (0.7-1.2) mg/dL Calcium 8.3 L (8.4-10.2) mg/dL Total Bilirubin 1.60 H (0.1-1.2) mg/dL AST 64 H 63 H (5-40) units/L ALT 58 H (7-56) units/L Total Protein 5.2 L D 4.9 L (6.3-8.2) g/dL Albumin 3.0 L 2.6 L (3.9-5) g/dL Assessment and Plan Cultures: none Assessment: 34 y/o female with history of ETOH use, admitted on due to 4-day history of nausea, vomiting and epigastric abdominal pain associated with dysuria and incontinence: #Acute sepsis: Present on admission with fever, tachycardia, secondary to UTI. #Pyelonephritis: CT shows left kidney changes consistent with left pyelonephritis. No obstruction seen. #Nausea and vomiting: From UTI and possible alcohol gastritis #Elevated LFTs: Likely due to alcohol hepatitis, sepsis #Thrombocytopenia: Possible due to sepsis. Will monitor. Recommendations: Obtain blood culture and urine culture Continue cefepime 1 g IV every 8 hours Patient with pyelonephritis may have persistent fever despite appropriate antibiotics, please monitor Monitor platelets. Will follow. Venus Harmon MD Infectious Diseases [employer] [facility] M [phone] O [phone]
[2020-01-05] MEDS: ONDANSETRON 4 MG/2 ML INJ IV PRN (17:02)
[2020-01-06] MEDS: MORPHINE 2 MG/1 ML INJ IV PRN ×2 (02:55→07:30)
[2020-01-06] MEDS: CEFEPIME/NS 1 GM/100 ML 1 GM/100 ML BAG IV SCH ×2 (02:56→09:51)
[2020-01-06] MEDS: SODIUM CHLORIDE 0.9% 1000 ML 1,000 ML IV SCH (03:01)
--- NOTE | 2020-01-06 08:19 | Discharge Summary ---
Providers - Providers Date of Admission: 01/03/20 23:36 Attending physician: DAWIT CHAVARRIA MD 01/05/20 08:23 Consult to Physician [CONS] Routine Comment: Consulting Provider: RODRICK MCKEON Physician Instructions: Reason For Exam: Acute pyelonephritis Primary care physician: WE[facility] [employer]ER Hospitalization Condition: Stable Hospital course: Patient is a 34-year-old female that presents emergency room with complaints of nausea and vomiting x5 days. Patient states 4 days ago she drank a lot of alcohol and has been vomiting ever since. Patient states she thinks she has alcohol poisoning. Patient states she has not alcohol since. Patient denies chest pain. Patient denies shortness of breath. Patient complains of epigastric pain. Patient states epigastric pain is a 10 out of 10. Patient states the pain is worse with movement and vomiting. Patient states the pain is better with rest. Patient denies fever and chills. Patient denies blood in her vomitus. Patient states she drinks regularly. Patient denies seizure. Patient denies shaking. Patient denies anxiety. Patient denies recent travel. Patient denies recent international travel. Patient denies exposure to the novel coronavirus. Patient denies sick contacts. Patient denies fever and chills. Patient denies cough. Patient denies diarrhea. Patient denies coming in contact with anybody with symptoms of the novel coronavirus. 01/04/2020. Patient reports improvement in nausea vomiting wants to start trying p.o. intakes. Continue antibiotics. Await cultures. Will check chest x-ray to rule out any other pathology. Patient denies any contact with anyone with novel coronavirus. 15 minutes of counseling provided on need to quit EtOH use. Continue current therapy as outlined in the H&P. Replace electrolytes. If repeated fever will likely need further work-up and possible ID consultation. Initiate CIWA protocol 01/04: Persistent fever likely secondary to pyelonephritis. Will have ID evaluate the patient. Obtain urine culture if not already obtained. Advance diet as tolerated. Again counseled on alcohol abuse reemphasized. Replace potassium. 01/05: Clinically improved, no new fever, counselling re-enforced on need to quit ETOH use Sepsis likely secondary to acute pyelonephritis EtOH abuse Gastroenteritis likely secondary to EtOH abuse Intractable nausea vomiting Moderate protein calorie malnutrition Hypokalemia Thrombocytopenia Hyperbilirubinemia Hyponatremia now improving Disposition: DC-01 TO HOME OR SELFCARE Time spent for discharge: 35 MINS Core Measure Documentation - Palliative Care Palliative Care/ Comfort Measures: Not Applicable - Core Measures Any of the following diagnoses?: none Exam - Physical Exam Narrative exam: VITAL SIGNS: Reviewed. GENERAL: The patient appears normally developed, Vital signs as documented. HEAD: No signs of head trauma. EYES: Pupils are equal. Extraocular motions intact. EARS: Hearing grossly intact. MOUTH: Oropharynx is normal. NECK: No adenopathy, no JVD. CHEST: Chest with clear breath sounds bilaterally. No wheezes, rales, or rhonchi. CARDIAC: Regular rate and rhythm. S1 and S2, without murmurs, gallops, or rubs. VASCULAR: No Edema. Peripheral pulses normal and equal in all extremities. ABDOMEN: Soft, non tender and non distended. No rebound or guarding, and no masses palpated. Bowel Sounds normal. MUSCULOSKELETAL: Good range of motion of all major joints. Extremities without clubbing, cyanosis or edema. NEUROLOGIC EXAM: Alert and oriented x 3 No focal sensory or strength deficits. Speech normal. Follows commands. PSYCHIATRIC: Mood normal. SKIN: detial exam as documented in skin assessment - Constitutional Vitals: Temp Pulse Resp BP Pulse Ox 98.8 F 74 20 123/92 100 01/06/20 05:14 01/06/20 05:14 01/06/20 05:14 01/06/20 05:14 01/06/20 05:14 Plan Activity: advance as tolerated, fall precautions Diet: regular Special Instructions: record daily weights, record daily BP diary Durable Medical Equipment Needed Upon Discharge: other Follow up with: JESSICA DUMONT MD [Primary Care Provider] - 3-5 Days RODRICK MCKEON MD [Staff Physician] - 7 Days Prescriptions: Ciprofloxacin HCl [Ciprofloxacin TAB] 500 mg PO Q12HR #14 tab
[2020-01-06 09:25] LABS: BUN/Creatinine Ratio 4; Blood Urea Nitrogen 2 mg/dL (7-17); Calcium 8.5 mg/dL (8.4-10.2); Hemolysis Index 4
[2020-01-06] MEDS: HEPARIN 5,000 UNIT/1 ML VIAL SUB-Q SCH (09:51)
[2020-01-06 11:56] VITALS: BP 117/89
== END 2020-01-06 12:36 | disposition home health service (06) | DRG 872 ==
LOC: ED 18:01 → 3A 22:13 → OBSVTOIN 23:36
PROVIDERS: ADMIT Internal Medicine; ATTEND Internal Medicine
DX: A41.9 Sepsis, unspecified organism (principal); E87.1 Hypo-osmolality and hyponatremia; K52.9 Noninfective gastroenteritis and colitis, unspecified; E44.0 Moderate protein-calorie malnutrition; F17.200 Nicotine dependence, unspecified, uncomplicated; F12.90 Cannabis use, unspecified, uncomplicated; E87.6 Hypokalemia; F10.10 Alcohol abuse, uncomplicated; E80.6 Other disorders of bilirubin metabolism; N10 Acute pyelonephritis; D69.6 Thrombocytopenia, unspecified; K70.10 Alcoholic hepatitis without ascites; Y90.9 Presence of alcohol in blood, level not specified; F17.210 Nicotine dependence, cigarettes, uncomplicated; Z98.891 History of uterine scar from previous surgery; Z79.899 Other long term (current) drug therapy; Z79.891 Long term (current) use of opiate analgesic; Z90.49 Acquired absence of other specified parts of digestive tract; Z79.51 Long term (current) use of inhaled steroids; Z71.6 Tobacco abuse counseling
CPT/HCPCS: 36415; 71045; 74177; 80048; 80053; 80320; 81001; 83690; 83735; 84100; 84703; 85025; 85027; 87040; 87086; 93005; 99406; G0378; G0480; J0692; J0696; J1170; J1644; J2270; J2405; J2543; J3411; J3475; J3480; J7030; Q9967

== ENCOUNTER 2020-10-01 16:41 | Emergency (ER) | payer OTHER ==
--- NOTE | 2020-10-01 18:09 | Event Note ---
ED Screening Note ED Screening Note: +generalized abd pain that began yesterday +n/v no diarrhea normal BM yesterday no dysuria no odor no urinary frequency PSHx hernia repair at 3 years old, 2003 no allergies to meds occasional ETOH LNMP: end of Aug This initial assessment/diagnostic orders/clinical plan/treatment(s) is/are subject to change based on patients health status, clinical progression and re- assessment by fellow clinical providers in the ED. Further treatment and workup at subsequent clinical providers discretion. Patient/guardian urged not to elope from the ED as their condition may be serious if not clinically assessed and managed. Initial orders include: labs, UA
[2020-10-01 18:32] LABS: Basophils % (Auto) 0.3 % (0.0-1.8); Eosinophils % (Auto) 0.5 % (0.0-4.3); Hematocrit 40.5 % (30.3-42.9); Hemoglobin 14.1 gm/dl (10.1-14.3); Lymphocytes # (Auto) 1.3 K/mm3 (1.2-5.4); Lymphocytes % (Auto) 27.6 % (13.4-35.0); Mean Corpuscular HGB Conc 35 % (30-34); Mean Corpuscular Volume 108 fl (79-97); Monocytes # (Auto) 0.5 K/mm3 (0.0-0.8); Monocytes % (Auto) 10.3 % (0.0-7.3); Platelet Count 168 K/mm3 (140-440); Red Blood Count 3.76 M/mm3 (3.65-5.03); Red Cell Distribution Width 14.1 % (13.2-15.2)
[2020-10-01 18:52] LABS: Alanine Aminotransferase 76 units/L (7-56); Albumin 4.5 g/dL (3.9-5); Blood Urea Nitrogen 8 mg/dL (7-17); Calcium 10.2 mg/dL (8.4-10.2); Hemolysis Index 5
[2020-10-01 18:53] LABS: BUN/Creatinine Ratio 13
[2020-10-01] MEDS ORDERED: SODIUM CHLORIDE 0.9% 1000 ML 1,000 ML IV ONE (19:10)
[2020-10-01] MEDS ORDERED: MORPHINE 4 MG/1 ML INJ IV ONE (19:10)
[2020-10-01] MEDS ORDERED: ONDANSETRON 4 MG/2 ML INJ IV ONE (19:10)
[2020-10-01 19:44] VITALS: BP 127/94
--- NOTE | 2020-10-01 20:08 | Emergency Department Report ---
ED Abdominal Pain HPI - General Chief Complaint: Abdominal Pain Stated Complaint: ABD PAIN Time Seen by Provider: 10/01/20 18:06 Source: patient Mode of arrival: Ambulatory Limitations: No Limitations - History of Present Illness Initial Comments: 35-year-old -Algerian female with past medical history of a cholecystectomy presents emerged department complaining of going out to a bar called Drinking [place] [employer] with an Unknown Level and Type of Alcohol to Her Knowledge and States after Consuming the Drink She Began to Have an Upset Stomach Followed by Pain Nausea and Vomiting and Has Been Doing so for the Last 2 Days. Reports No Fever, Chills, Sweats, No Hemoptysis No Hematemesis No Hematochezia Reports No Chest Pain or Palpitations. Severity: mild Severity scale (0 -10): 10 Quality: dull Associated Symptoms: nausea, vomiting. denies: diarrhea, constipation, dysuria, hematemesis, hematochezia, hematuria, anorexia - Related Data Previous Rx's Medication Instructions Recorded Last Taken Type Ciprofloxacin HCl [Ciprofloxacin 500 mg PO Q12HR #14 tab 01/06/20 Unknown Rx TAB] Hyoscyamine Subl [Levsin Sl 0.125 0.125 mg SL Q6HR #20 tab 10/01/20 Unknown Rx TAB] Ondansetron [Zofran Odt] 4 mg PO Q8HR #14 tab.rapdis 10/01/20 Unknown Rx Allergies Allergy/AdvReac Type Severity Reaction Status Date / Time No Known Allergies Allergy Verified 10/30/18 11:02 ED Review of Systems ROS: Stated complaint: ABD PAIN Other details as noted in HPI Comment: All other systems reviewed and negative ED Past Medical Hx - Past Medical History Previous Medical History?: No Hx Congestive Heart Failure: No Hx Diabetes: No Hx Pulmonary Embolism: No Hx Asthma: No Hx COPD: No - Surgical History Past Surgical History?: Yes Hx Cholecystectomy: Yes Additional Surgical History: Hemrroidectomy 2007, -2003, cholecytectomy 2005, hernia repair 1991 - Social History Smoking Status: Never Smoker Substance Use Type: None - Medications Home Medications: Home Medications Medication Instructions Recorded Confirmed Last Taken Type Ciprofloxacin HCl [Ciprofloxacin 500 mg PO Q12HR #14 tab 01/06/20 Unknown Rx TAB] Hyoscyamine Subl [Levsin Sl 0.125 0.125 mg SL Q6HR #20 tab 10/01/20 Unknown Rx TAB] Ondansetron [Zofran Odt] 4 mg PO Q8HR #14 tab.rapdis 10/01/20 Unknown Rx ED Physical Exam - General Limitations: No Limitations General appearance: alert, in no apparent distress - Head Head exam: Present: atraumatic, normocephalic - Eye Eye exam: Present: normal appearance, PERRL, scleral icterus Pupils: Present: normal accommodation - ENT ENT exam: Present: normal exam, mucous membranes moist - Neck Neck exam: Present: normal inspection, full ROM, lymphadenopathy - Respiratory Respiratory exam: Present: normal lung sounds bilaterally. Absent: respiratory distress, rhonchi, stridor, chest wall tenderness - Cardiovascular Cardiovascular Exam: Present: regular rate, normal rhythm. Absent: systolic murmur, diastolic murmur, rubs, gallop - GI/Abdominal GI/Abdominal exam: Present: soft, tenderness, normal bowel sounds, other (No Rovsing, no Abernathy Yarbrough, no Tavares sign). Absent: guarding, hyperactive bowel sounds, hypoactive bowel sounds, mass, pulsatile mass - Extremities Exam Extremities exam: Present: normal inspection, normal capillary refill - Back Exam Back exam: Present: normal inspection - Neurological Exam Neurological exam: Present: alert, oriented X3, CN II-XII intact - Psychiatric Psychiatric exam: Present: normal affect, normal mood - Skin Skin exam: Present: warm, dry, intact, normal color. Absent: rash ED Course Vital Signs 10/01/20 10/01/20 10/01/20 17:01 19:43 19:44 Temperature 97.8 F 98.3 F Pulse Rate 104 H 87 Respiratory 20 18 18 Rate Blood Pressure 155/103 127/94 [Left] O2 Sat by Pulse 96 100 100 Oximetry ED Medical Decision Making - Lab Data Result diagrams: 10/01/20 18:18 10/01/20 18:18 Lab Results 10/01/20 10/01/20 10/01/20 Range/Units 18:18 18:18 18:18 WBC 4.7 (4.5-11.0) K/mm3 RBC 3.76 (3.65-5.03) M/mm3 Hgb 14.1 (10.1-14.3) gm/dl Hct 40.5 (30.3-42.9) % MCV 108 H (79-97) fl MCH 38 H (28-32) pg MCHC 35 H (30-34) % RDW 14.1 (13.2-15.2) % Plt Count 168 (140-440) K/mm3 Lymph % (Auto) 27.6 (13.4-35.0) % Branch % (Auto) 10.3 H (0.0-7.3) % Eos % (Auto) 0.5 (0.0-4.3) % Baso % (Auto) 0.3 (0.0-1.8) % Lymph # (Auto) 1.3 (1.2-5.4) K/mm3 [place] # (Auto) 0.5 (0.0-0.8) K/mm3 Eos # (Auto) 0.0 (0.0-0.4) K/mm3 Baso # (Auto) 0.0 (0.0-0.1) K/mm3 Seg Neutrophils % 61.3 (40.0-70.0) % Seg Neutrophils # 2.9 (1.8-7.7) K/mm3 Sodium 134 L (137-145) mmol/L Potassium 3.4 L (3.6-5.0) mmol/L Chloride 93.5 L (98-107) mmol/L Carbon Dioxide 25 (22-30) mmol/L Anion Gap 19 mmol/L BUN 8 (7-17) mg/dL Creatinine 0.6 (0.6-1.2) mg/dL Estimated GFR > 60 ml/min BUN/Creatinine Ratio 13 % Glucose 120 H (65-100) mg/dL Calcium 10.2 (8.4-10.2) mg/dL Total Bilirubin 1.50 H (0.1-1.2) mg/dL AST 95 H (5-40) units/L ALT 76 H (7-56) units/L Alkaline Phosphatase 68 (35-129) units/L Total Protein 7.3 (6.3-8.2) g/dL Albumin 4.5 (3.9-5) g/dL Albumin/Globulin Ratio 1.6 % Lipase 159 H (13-60) units/L HCG, Qual Negative (Negative) - Radiology Data Radiology results: report reviewed Medical [address] [address] Cat Scan Report Signed Patient: AMINA OZUNA MR#: [id number] : 1985 Acct:[id number] Age/Sex: 35 / F ADM Date: 10/01/20 Loc: ED Attending Dr: Ordering Physician: FARIDEH MURRIETA Date of Service: 10/01/20 Procedure(s): CT abdomen pelvis w con Accession Number(s): [id number] cc: FARIDEH MURRIETA CT abdomen pelvis w con INDICATION / CLINICAL INFORMATION: generalized abd pain, n/v. TECHNIQUE: Axial CT imaging of abdomen and pelvis was obtained with IV contrast. Coronal and sagittal reformatted imaging obtained and reviewed. All CT scans at this location are pe rformed using CT dose reduction for ALARA by means of automated exposure control. COMPARISON: Comparison is with 01/03/[address] scan[address] FINDINGS: CT abdomen with IV contrast demonstrates mild hepatomegaly due to severe hepatic steatosis. Liver is otherwise unremarkable. Spleen, pancreas, kidneys, and adrenal glands appear grossly unremarkable. Prior cholecystectomy. No biliary dilatation is noted. Of note there is focal mild inflammatory change noted in the left upper quadrant posteriorly. The exact source of the inflammatory change is not clear. However, inflammatory change is close to the pancreatic tail, the inferior aspect of the spleen, as well as the splenic flexure. I would favor that there is some mild pancreatitis involving the pancreatic tail. CT pelvis with contrast does not demonstrate any pelvic mass, free fluid, or focal inflammatory change. A normal appendix is seen in the midline of the posterior pelvis adjacent to the rectum. GI tract is unremarkable. Visualized lung bases are clear. No significant acute osseous abnormality. IMPRESSION: 1. Focal inflammatory change is present in the left upper abdominal quadrant posteriorly, in the general vicinity of spleen, pancreatic tail, and splenic flexure. The source of the inflammatory change is not clearly evident, but I would favor that the inflammatory change is arising from mild pancreatitis from the pancreatic tail. This could be confirmed with pancreatic enzyme evaluation. 2. Mild hepatomegaly due to marked hepatic steatosis. Signer Name: Nichelle Gonzalez MD Signed: 10/01/2020 8:58 PM Workstation Name: [id number] Transcribed By: Dictated By: Nichelle Gonzalez MD Electronically Authenticated By: Nichelle Gonzalez MD Signed Date/Time: 10/01/202057 DD/ 49 TD/TT: - Medical Decision Making This patient presents with abdominal pain of unclear etiology. A CT scan was pe rformed to evaluate for potential causes of the abdominal pain, however, neither the clinical exam nor the CT has identified an emergent etiology for the abdominal pain. Specifically, given the benign exam, the laboratory studies, and unremarkable CT, I have a very low suspicion for appendicitis, ischemic bowel, bowel perforation, or any other life threatening disease. There is is a mild pancreatitis and pancreatic pain. Patient is alert and oriented she is ambulatory she is tolerating p.o. with no limitation there is some mild discomfort to the region. Pancreatitis is likely given her history of EtOH which preceded the event which is what she ingested about 3 days ago. I have discussed with the patient the level of uncertainty with undifferentiated abdominal pain and clearly explained the need to follow-up as noted on the discharge instructions, or return to the Emergency Department immediately if the pain worsens, develops fever, persistent and uncontrollable vomiting, or for any new symptoms or concerns. Critical care attestation.: If time is entered above; I have spent that time in minutes in the direct care of this critically ill patient, excluding procedure time. ED Disposition Clinical Impression: Abdominal pain, Nausea & vomiting, Pancreatitis Disposition: DC-01 TO HOME OR SELFCARE Is pt being admited?: No Does the pt Need Aspirin: No Condition: Stable Instructions: Nausea, Adult, Acute Pancreatitis, [id number], Pancreatitis Eating Plan, Nausea and Vomiting, Adult, Abdominal Pain (ED) Additional Instructions: CT scan showed mild pancreatitis please adhere to the pancreatitis diet Medications for your nausea vomiting and pain as needed Prescriptions: Hyoscyamine Subl [Levsin Sl 0.125 TAB] 0.125 mg SL Q6HR #20 tab Ondansetron [Zofran Odt] 4 mg PO Q8HR #14 tab.[email or web address] Referrals: PRIMARY CARE, [Primary Care Provider] - 3-5 Days RICHARD MCCULLOUGH MD [Staff Physician] - 3-5 Days
--- NOTE | 2020-10-01 21:02 | Cat Scan Report ---
CT abdomen pelvis w con INDICATION / CLINICAL INFORMATION: generalized abd pain, n/v. TECHNIQUE: Axial CT imaging of abdomen and pelvis was obtained with IV contrast. Coronal and sagittal reformatte d imaging obtained and reviewed. All CT scans at this location are performed using CT dose reduction for ALARA by means of automated exposure control. COMPARISON: Comparison is with 01/03/[address] scan. FINDINGS: CT abdomen with IV contrast demonstrates mild hepatomegaly due to severe hepatic steatosis. Liver is otherwise unremarkable. Spleen, pancreas, kidneys, and adrenal glands appear grossly unremarkable. Pr ior cholecystectomy. No biliary dilatation is noted. Of note there is focal mild inflammatory change noted in the left upper quadrant posteriorly. The exa ct source of the inflammatory change is not clear. However, inflammatory change is close to the pancr eatic tail, the inferior aspect of the spleen, as well as the splenic flexure. I would favor that the re is some mild pancreatitis involving the pancreatic tail. CT pelvis with contrast does not demonstrate any pelvic mass, free fluid, or focal inflammatory marquez e. A normal appendix is seen in the midline of the posterior pelvis adjacent to the rectum. GI tract is unremarkable. Visualized lung bases are clear. No significant acute osseous abnormality. IMPRESSION: 1. Focal inflammatory change is present in the left upper abdominal quadrant posteriorly, in the gen eral vicinity of spleen, pancreatic tail, and splenic flexure. The source of the inflammatory change is not clearly evident, but I would favor that the inflammatory change is arising from mild pancreati tis from the pancreatic tail. This could be confirmed with pancreatic enzyme evaluation. 2. Mild hepatomegaly due to marked hepatic steatosis. Signer Name: Nichelle Gonzalez MD Signed: 10/01/2020 8:58 PM Workstation Name: [id number]
[2020-10-01 21:30] LABS: Bacteria,Urine 1+ /HPF (Negative); Bilirubin,Urine SM (Negative); Blood,Urine LG (Negative); Color,Urine Amber (Yellow); Hyaline Casts,Urine 3 /LPF; Mucus,Urine 3+ /HPF
[2020-10-01 21:33] LABS: Ictotest,Urine Negative (Negative)
== END 2020-10-02 01:09 | disposition home or self-care (01) ==
LOC: ED 16:41
DX: K85.90 Acute pancreatitis without necrosis or infection, unspecified (principal); R11.2 Nausea with vomiting, unspecified; R10.9 Unspecified abdominal pain; Z90.49 Acquired absence of other specified parts of digestive tract; Z98.890 Other specified postprocedural states; Z79.2 Long term (current) use of antibiotics; Z79.899 Other long term (current) drug therapy
CPT/HCPCS: 36415; 74177; 80053; 81001; 83690; 84703; 85025; 96361; 96374; 96375; 99284; J2270; J2405; J7030; Q9967

== ENCOUNTER 2020-10-02 09:09 | Inpatient (IN) | payer OTHER ==
[2020-10-02] MEDS ORDERED: PANTOPRAZOLE 40 MG INJ IV ONE (09:33)
[2020-10-02] MEDS ORDERED: SODIUM CHLORIDE 0.9% 1000 ML 1,000 ML IV ONE ×2 (09:33→09:44)
--- NOTE | 2020-10-02 09:39 | Emergency Department Report ---
ED Abdominal Pain HPI - General Chief Complaint: Abdominal Pain Stated Complaint: ABD PAIN/VOMITTING PUI?: No Time Seen by Provider: 10/02/20 09:25 Source: patient Mode of arrival: Wheelchair Limitations: No Limitations - History of Present Illness Initial Comments: This is a 35-year-old female who states she has no prior history of pancreatitis other than yesterday's diagnosis. She is status post a cholecystectomy. She has been having abdominal pain, nausea and vomiting but no signs of upper GI bleeding for the past 3 days. She has not been able to tolerate p.o. since she was discharged after emergency department evaluation yesterday. A CT of her abdomen demonstrated: FINDINGS: CT abdomen with IV contrast demonstrates mild hepatomegaly due to severe hepatic steatosis. Liver is otherwise unremarkable. Spleen, pancreas, kidneys, and adrenal glands appear grossly unremarkable. Prior cholecystectomy. No biliary dilatation is noted. Of note there is focal mild inflammatory change noted in the left upper quad rant posteriorly. The exact source of the inflammatory change is not clear. However, inflammatory c hange is close to the pancreatic tail, the inferior aspect of the spleen, as well as the splenic fl exure. I would favor that there is some mild pancreatitis involving the pancreatic tail. CT pelvis with contrast does not demonstrate any pelvic mass, free fluid, or focal inflammatory change. A normal appendix is seen in the midline of the posterior pelvis adjacent to the rectum. GI tract is unremarkable. Visualized lung bases are clear. No significant acute osseous abnormality. IMPRESSION: 1. Focal inflammatory change is present in the left upper abdominal quadrant posteriorly, in the general vicinity of spleen, pancreatic tail, and splenic flexure. The source of the inflammatory change is not clearly evident, but I would favor that the inflammatory change is arising from mild pancreatitis from the pancreatic tail. This could be confirmed with pancreatic enzyme evaluation. 2. Mild hepatomegaly due to marked hepatic steatosis. Signer Name: Nichelle Gonzalez MD She returns to the emergency department complaining of persistent epigastric/mid abdominal pain which does not radiate to the back. Is dull and constant. It is associated with nausea and vomiting. She denies fever or chills. Complaint: abdominal pain -: Gradual Location: periumbilical, epigastric Radiation: none Migration to: no migration Severity: moderate, severe Quality: aching Consistency: constant Improves With: nothing Worsens With: eating Context: other (Pancreatitis) Associated Symptoms: nausea, vomiting. denies: diarrhea, fever, chills, hematemesis, hematochezia, melena - Related Data Previous Rx's Medication Instructions Recorded Last Taken Type Ciprofloxacin HCl [Ciprofloxacin 500 mg PO Q12HR #14 tab 01/06/20 Unknown Rx TAB] Hyoscyamine Subl [Levsin Sl 0.125 0.125 mg SL Q6HR #20 tab 10/01/20 Unknown Rx TAB] Ondansetron [Zofran Odt] 4 mg PO Q8HR #14 tab.rapdis 10/01/20 Unknown Rx Allergies Allergy/AdvReac Type Severity Reaction Status Date / Time No Known Allergies Allergy Verified 10/02/20 09:11 ED Review of Systems ROS: Stated complaint: ABD PAIN/VOMITTING Other details as noted in HPI Constitutional: denies: chills, fever Eyes: denies: eye pain, vision change ENT: denies: ear pain, throat pain Respiratory: denies: cough, shortness of breath Cardiovascular: denies: chest pain, palpitations Endocrine: no symptoms reported Gastrointestinal: as per HPI Genitourinary: denies: urgency, dysuria Musculoskeletal: denies: back pain, joint swelling, arthralgia Skin: denies: rash, lesions Neurological: denies: headache, weakness, paresthesias Psychiatric: denies: anxiety, depression Hematological/Lymphatic: denies: easy bleeding, easy bruising ED Past Medical Hx - Past Medical History Previous Medical History?: Yes Hx Congestive Heart Failure: No Hx Diabetes: No Hx Pulmonary Embolism: No Hx Asthma: No Hx COPD: No Additional medical history: Diagnosed with pancreatitis yesterday - Surgical History Hx Cholecystectomy: Yes Additional Surgical History: Hemrroidectomy 2007, -2003, cholecyte ctomy 2005, hernia repair 1991 - Social History Smoking Status: Never Smoker Substance Use Type: Alcohol - Medications Home Medications: Home Medications Medication Instructions Recorded Confirmed Last Taken Type Ciprofloxacin HCl [Ciprofloxacin 500 mg PO Q12HR #14 tab 01/06/20 Unknown Rx TAB] Hyoscyamine Subl [Levsin Sl 0.125 0.125 mg SL Q6HR #20 tab 10/01/20 Unknown Rx TAB] Ondansetron [Zofran Odt] 4 mg PO Q8HR #14 tab.rapdis 10/01/20 Unknown Rx ED Physical Exam - General Limitations: Physical Limitation General appearance: alert, in distress - Head Head exam: Present: atraumatic, normocephalic - Eye Eye exam: Present: normal appearance. Absent: scleral icterus - ENT ENT exam: Present: mucous membranes moist - Neck Neck exam: Present: normal inspection - Respiratory Respiratory exam: Present: normal lung sounds bilaterally. Absent: respiratory distress - Cardiovascular Cardiovascular Exam: Present: regular rate, normal rhythm. Absent: systolic murmur, diastolic murmur, rubs, gallop - GI/Abdominal GI/Abdominal exam: Present: soft, distended (Perhaps slightly), tenderness (Only mildly to palpation), normal bowel sounds. Absent: guarding, rebound, rigid - Extremities Exam Extremities exam: Present: normal inspection - Back Exam Back exam: Present: normal inspection - Neurological Exam Neurological exam: Present: alert, oriented X3, CN II-XII intact. Absent: motor sensory deficit - Psychiatric Psychiatric exam: Present: normal affect, normal mood - Skin Skin exam: Present: warm, dry, intact, normal color. Absent: rash ED Course Vital Signs 10/02/20 10/02/20 09:11 09:47 Temperature 97.6 F Pulse Rate 80 71 Respiratory 20 15 Rate Blood Pressure 140/92 Blood Pressure 146/95 [Left] O2 Sat by Pulse 96 100 Oximetry - Reevaluation(s) Reevaluation #1: Antiemetics, IV fluids, Protonix. Lipase increasing compared with prior. Patient needing hospitalist service. 10/02/20 11:52 10/02/20 13:18 Patient was referred to Dr. Faria. ED Medical Decision Making - Lab Data Result diagrams: 10/02/20 09:44 10/02/20 09:44 Laboratory Results - last 24 hr 10/02/20 10/02/20 10/02/20 09:44 09:44 09:44 WBC 6.7 RBC 3.78 Hgb 14.3 Hct 40.8 MCV 108 H MCH 38 H MCHC 35 H RDW 13.8 Plt Count 161 Lymph % (Auto) 5.8 L [place] % (Auto) 7.1 Eos % (Auto) 0.1 Baso % (Auto) 1.0 Lymph # (Auto) 0.4 L [place] # (Auto) 0.5 Eos # (Auto) 0.0 Baso # (Auto) 0.1 Seg Neutrophils % 86.0 H Seg Neutrophils # 5.8 PT 11.6 L INR 0.87 Sodium 135 L Potassium 3.3 L Chloride 93.5 L Carbon Dioxide 23 Anion Gap 22 BUN 6 L Creatinine 0.5 L Estimated GFR > 60 BUN/Creatinine Ratio 12 Glucose 117 H Calcium 10.1 Magnesium Total Bilirubin 1.30 H Direct Bilirubin 0.5 H Indirect Bilirubin 0.8 AST 72 H ALT 65 H Alkaline Phosphatase 66 Total Protein 7.2 Albumin 4.3 Albumin/Globulin Ratio 1.5 Lipase 822 H 10/02/20 09:44 WBC RBC Hgb Hct MCV MCH MCHC RDW Plt Count Lymph % (Auto) [place] % (Auto) Eos % (Auto) Baso % (Auto) Lymph # (Auto) [place] # (Auto) Eos # (Auto) Baso # (Auto) Seg Neutrophils % Seg Neutrophils # PT INR Sodium Potassium Chloride Carbon Dioxide Anion Gap BUN Creatinine Estimated GFR BUN/Creatinine Ratio Glucose Calcium Magnesium 1.80 Total Bilirubin Direct Bilirubin Indirect Bilirubin AST ALT Alkaline Phosphatase Total Protein Albumin Albumin/Globulin Ratio Lipase Critical care attestation.: If time is entered above; I have spent that time in minutes in the direct care of this critically ill patient, excluding procedure time. ED Disposition Clinical Impression: Acute pancreatitis Qualifiers: Pancreatitis type: alcohol induced Acute pancreatitis complication: unspecified Qualified Code(s): K85.20 - Alcohol induced acute pancreatitis without necrosis or infection Intractable vomiting Qualifiers: Vomiting type: unspecified Nausea presence: with nausea Qualified Code(s): R11.2 - Nausea with vomiting, unspecified Disposition: OP ADMIT IP TO THIS HOSP Is pt being admited?: Yes Does the pt Need Aspirin: No Condition: Stable Instructions: Abdominal Pain (ED) Referrals: PRIMARY CAREMD [Primary Care Provider] - 3-5 Days Time of Disposition: 11:53
[2020-10-02] MEDS: ONDANSETRON 4 MG/2 ML INJ IV ONE ×2 (09:50→11:34)
[2020-10-02] MEDS: MORPHINE 2 MG/1 ML INJ IV ONE ×2 (09:50→11:34)
[2020-10-02 10:17] LABS: Basophils # (Auto) 0.1 K/mm3 (0.0-0.1); Eosinophils % (Auto) 0.1 % (0.0-4.3); Hematocrit 40.8 % (30.3-42.9); Hemoglobin 14.3 gm/dl (10.1-14.3); INR 0.87 (0.87-1.13); Lymphocytes # (Auto) 0.4 K/mm3 (1.2-5.4); Lymphocytes % (Auto) 5.8 % (13.4-35.0); Mean Corpuscular HGB Conc 35 % (30-34); Mean Corpuscular Volume 108 fl (79-97); Monocytes # (Auto) 0.5 K/mm3 (0.0-0.8); Monocytes % (Auto) 7.1 % (0.0-7.3); Platelet Count 161 K/mm3 (140-440); Red Blood Count 3.78 M/mm3 (3.65-5.03); Red Cell Distribution Width 13.8 % (13.2-15.2)
[2020-10-02 10:24] LABS: Alanine Aminotransferase 65 units/L (7-56); Albumin 4.3 g/dL (3.9-5); Bilirubin,Direct 0.5 mg/dL (0-0.2); Blood Urea Nitrogen 6 mg/dL (7-17); Calcium 10.1 mg/dL (8.4-10.2); Hemolysis Index 9
[2020-10-02 10:25] LABS: BUN/Creatinine Ratio 12
[2020-10-02] MEDS ORDERED: MORPHINE 2 MG/1 ML INJ IV ONE (11:53)
[2020-10-02] MEDS ORDERED: ALBUTEROL 2.5 MG/3 ML NEBU IH PRN (14:12)
--- NOTE | 2020-10-02 14:15 | History and Physical Report ---
History of Present Illness Chief complaint: Im sick History of present illness: 35 YO Female with ETOH Dependence, Severe Malnutrition presents to ED for evaluation. Patient reports "I feel sick". Patient states that she had experienced abdominal pain, nausea, multiple episodes of vomiting, as well as inability to tolerate liquid and solid foods over the past 3 days with persistent symptoms over the same timeframe. Patient transported to [facility] via private vehicle for further care and evaluation of the aforementioned symptoms. The patient was seen and evaluated in the emergency department. All lab and imaging studies reviewed. Patient underwent a CT scan of the abdomen and pelvis and was found to have acute pancreatitis. Patient symptoms are complicated by intractable nausea and vomiting, as well as volume depletion. Patient admitted to medical floor and initiated on IV fluid resuscitation therapy. Patient denies fever, chills, chest pain, palpitation, productive cough, skin rash, recent ill contacts, ingestion of food/water from new or different sources, or known exposure to COVID-19. Past History Past Surgical History: cholecystectomy, , hernia repair, Other ( Hemrroidectomy 2007, ) Social history: single, smoking, alcohol abuse Family history: hypertension Medications and Allergies Allergies Allergy/AdvReac Type Severity Reaction Status Date / Time No Known Allergies Allergy Verified 10/02/20 09:11 Home Medications Medication Instructions Recorded Confirmed Last Taken Type Ciprofloxacin HCl [Ciprofloxacin 500 mg PO Q12HR #14 tab 01/06/20 Unknown Rx TAB] Hyoscyamine Subl [Levsin Sl 0.125 0.125 mg SL Q6HR #20 tab 10/01/20 Unknown Rx TAB] Ondansetron [Zofran Odt] 4 mg PO Q8HR #14 tab.rapdis 10/01/20 Unknown Rx Review of Systems Constitutional: no weight loss, no weight gain, no fever, no chills Ears, nose, mouth and throat: no ear pain, no ear discharge, no decreased hearing, no nose pain, no nasal congestion, no nasal discharge Breasts: no change in shape, no swelling, no mass Cardiovascular: no chest pain, no lightheadedness Respiratory: no cough, no excessive sputum, no hemoptysis, no dyspnea on exertion Gastrointestinal: abdominal pain, nausea, vomiting, no change in bowel habits, no coffee ground emesis, no melena, no early satiety, no heartburn, no indigestion Genitourinary Female: no pelvic pain, no flank pain, no dysuria, no urinary frequency, no urgency Rectal: no pain, no incontinence, no bleeding Musculoskeletal: no neck stiffness, no shooting arm pain, no arm numbness/tingling, no low back pain, no shooting leg pain, no redness of joints Integumentary: no rash, no pruritis, no redness, no sores, no wounds, no jaundice, no boils Neurological: no head injury, no transient paralysis, no paralysis, no parathesias, no numbness, no tingling, no seizures, no ataxia Psychiatric: no anxiety, no memory loss, no sleep disturbances, no hypersomnia, no change in libido, no suicidal ideation Endocrine: no cold intolerance, no heat intolerance, no polyphagia, no excessive thirst, no polyuria, no nocturia, no flushing, no weight change Hematologic/Lymphatic: no easy bruising, no easy bleeding, no lymphadenopathy Allergic/Immunologic: no urticaria, no allergic rhinitis, no persistent infections, no anaphylaxis Exam - Constitutional Vitals: Temp Pulse Resp BP Pulse Ox 97.6 F 71 20 146/95 100 10/02/20 09:11 10/02/20 09:47 10/02/20 09:47 10/02/20 09:47 10/02/20 09:47 General appearance: Present: mild distress, cachectic - EENT Eyes: Present: PERRL ENT: hearing intact, clear oral mucosa - Neck Neck: Present: supple, normal ROM - Respiratory Respiratory effort: normal Respiratory: bilateral: CTA - Cardiovascular Heart Sounds: Present: S1 & S2. Absent: rub, click - Extremities Extremities: pulses symmetrical, No edema Peripheral Pulses: within normal limits - Abdominal General gastrointestinal: Present: soft, non-tender, non-distended, normal bowel sounds, other (Negative Abernathy Yarbrough's sign negative Dilshad sign, no flank discoloration) Localized gastrointestinal: tender: diffuse Female genitourinary: Present: normal - Rectal Rectal Exam: normal exam-external/orifice, normal rectal tone, nodular - Integumentary Integumentary: Present: clear, warm, dry - Musculoskeletal Musculoskeletal: gait normal, strength equal bilaterally - Psychiatric Psychiatric: appropriate mood/affect, intact judgment & insight - Neurologic Neurologic: CNII-XII intact, moves all extremities Results - Labs CBC & Chem 7: 10/02/20 09:44 10/02/20 09:44 Labs: Abnormal lab results 10/02/20 10/02/20 10/02/20 Range/Units 09:44 09:44 09:44 MCV 108 H (79-97) fl MCH 38 H (28-32) pg MCHC 35 H (30-34) % Lymph % (Auto) 5.8 L (13.4-35.0) % Lymph # (Auto) 0.4 L (1.2-5.4) K/mm3 Seg Neutrophils % 86.0 H (40.0-70.0) % PT 11.6 L (12.2-14.9) Sec. Sodium 135 L (137-145) mmol/L Potassium 3.3 L (3.6-5.0) mmol/L Chloride 93.5 L (98-107) mmol/L BUN 6 L (7-17) mg/dL Creatinine 0.5 L (0.6-1.2) mg/dL Glucose 117 H (65-100) mg/dL Total Bilirubin 1.30 H (0.1-1.2) mg/dL Direct Bilirubin 0.5 H (0-0.2) mg/dL AST 72 H (5-40) units/L ALT 65 H (7-56) units/L Lipase 822 H (13-60) units/L Assessment and Plan - Patient Problems (1) Acute pancreatitis Current Visit: Yes Status: Acute Qualifiers: Pancreatitis type: alcohol induced Acute pancreatitis complication: unspecified Qualified Code(s): K85.20 - Alcohol induced acute pancreatitis without necrosis or infection Plan to address problem: CT scan abdomen abdomen and pelvis, serial abdominal exam, IV fluid resuscitation therapy, bowel rest, pain control, supportive care. (2) Volume depletion Current Visit: Yes Status: Acute Plan to address problem: IV fluid resuscitation therapy, monitor urine output every shift, monitor fluid balance. (3) Severe malnutrition Current Visit: Yes Status: Acute Plan to address problem: IV fluid resuscitation therapy, bowel rest, encourage increased protein intake when patient is able to tolerate oral diet. (4) Alcohol dependence Current Visit: Yes Status: Acute Qualifiers: Substance use status: uncomplicated Qualified Code(s): F10.20 - Alcohol de pendence, uncomplicated Plan to address problem: CIWA protocol, banana bag, supportive care. (5) Intractable vomiting Current Visit: Yes Status: Acute Qualifiers: Vomiting type: unspecified Nausea presence: with nausea Qualified C ode(s): R11.2 - Nausea with vomiting, unspecified Plan to address problem: Zofran as needed, bowel rest, IV fluid resuscitation therapy. (6) DVT prophylaxis Current Visit: Yes Status: Acute Plan to address problem: SCD to bilateral lower extremities while in bed, patient is ambulatory.
[2020-10-02] MEDS ORDERED: THIAMINE 100 MG, FOLIC ACID 1 MG, MULTIPLE VITAMIN INJ, ADULT 10 ML in SODIUM CHLORIDE ... IV ONE (14:16)
[2020-10-02] MEDS: ACETAMINOPHEN 325 MG TAB PO PRN ×2 (14:51→21:03)
[2020-10-02] MEDS ORDERED: LORazepam 2 MG/ML VIAL IV PRN (14:59)
[2020-10-02] MEDS ORDERED: THIAMINE 100 MG, FOLIC ACID 1 MG in SODIUM CHLORIDE 0.9% 1000 ML 1,000 ML IV ONE (15:00)
[2020-10-02] MEDS: MORPHINE 2 MG/1 ML INJ IV PRN ×2 (18:53→23:21)
[2020-10-02] MEDS: ONDANSETRON 4 MG/2 ML INJ IV PRN (19:05)
[2020-10-03] MEDS: MORPHINE 2 MG/1 ML INJ IV PRN ×5 (04:06→21:17)
[2020-10-03] MEDS: ONDANSETRON 4 MG/2 ML INJ IV PRN ×3 (04:07→21:17)
[2020-10-03] MEDS: SODIUM CHLORIDE 0.9% 1000 ML 1,000 ML IV SCH ×4 (06:33→21:22)
[2020-10-03 08:48] LABS: Basophils % (Auto) 0.1 % (0.0-1.8); Eosinophils % (Auto) 0.4 % (0.0-4.3); Hematocrit 35.8 % (30.3-42.9); Hemoglobin 12.3 gm/dl (10.1-14.3); Lymphocytes # (Auto) 0.7 K/mm3 (1.2-5.4); Lymphocytes % (Auto) 9.7 % (13.4-35.0); Mean Corpuscular HGB Conc 34 % (30-34); Mean Corpuscular Volume 109 fl (79-97); Monocytes # (Auto) 0.6 K/mm3 (0.0-0.8); Monocytes % (Auto) 8.7 % (0.0-7.3); Platelet Count 125 K/mm3 (140-440); Red Cell Distribution Width 13.8 % (13.2-15.2)
[2020-10-03 09:14] LABS: Alanine Aminotransferase 40 units/L (7-56); Albumin 3.4 g/dL (3.9-5); Blood Urea Nitrogen 2 mg/dL (7-17); Calcium 8.7 mg/dL (8.4-10.2); Hemolysis Index 5
[2020-10-03 09:25] LABS: BUN/Creatinine Ratio 5
[2020-10-03] MEDS ORDERED: POTASSIUM CHLORIDE ER 20 MEQ TAB PO ONE (10:00)
[2020-10-03] MEDS ORDERED: MAGNESIUM SULFATE 1 GM in SODIUM CHLORIDE 0.9% 50 ML IV ONE (10:00)
--- NOTE | 2020-10-03 10:22 | Progress Note ---
Assessment and Plan Assessment and plan: 35 YO Female with ETOH Dependence, Severe Malnutrition presents to ED for evaluation. Patient reports "I feel sick". Patient states that she had experienced abdominal pain, nausea, multiple episodes of vomiting, as well as inability to tolerate liquid and solid foods over the past 3 days with persiste nt symptoms over the same timeframe. Patient transported to [facility] via private vehicle for further care and evaluation of the aforementioned symptoms. The patient was seen and evaluated in the emergency department. All lab and imaging studies reviewed. Patient underwent a CT scan of the abdomen and pelvis and was found to have acute pancreatitis. Patient symptoms are complicated by intractable nausea and vomiting, as well as volume depletion. Patient admitted to medical floor and initiated on IV fluid resuscitation therapy. Patient denies fever, chills, chest pain, palpitation, productive cough, skin rash, recent ill contacts, ingestion of food/water from new or different sources, or known exposure to COVID-19. - Patient clinically stable, will try clear liquid, replace electrolytes, and recheck. Discussed with GI, no intervention needed at this time. Lipase trending down. Possible discharge today if able to tolerate clear liquids. (1) Acute pancreatitis secondary to EtOH use disorder (2) Volume depletion (3) Severe malnutrition (4) Alcohol dependence (5) Intractable vomiting (6) severe hypokalemia (7) DVT prophylaxis Current Visit: Yes Status: Acute Plan to address problem: SCD to bilateral lower extremities while in bed, patient is ambulatory. History Interval history: Patient seen and examined this morning reports improvement in symptoms. Has not taken any p.o. intake to further evaluate Hospitalist Physical - Physical exam Narrative exam: VITAL SIGNS: Reviewed. GENERAL: The patient appears normally developed, Vital signs as documented. HEAD: No signs of head trauma. EYES: Pupils are equal. Extraocular motions intact. EARS: Hearing grossly intact. MOUTH: Oropharynx is normal. NECK: No adenopathy, no JVD. CHEST: Chest with clear breath sounds bilaterally. No wheezes, rales, or rhonchi. CARDIAC: Regular rate and rhythm. S1 and S2, without murmurs, gallops, or rubs. VASCULAR: No Edema. Peripheral pulses normal and equal in all extremities. ABDOMEN: Soft, mildly tender epigastric region and non distended. No rebound or guarding, and no masses palpated. Bowel Sounds normal. MUSCULOSKELETAL: Good range of motion of all major joints. Extremities without clubbing, cyanosis or edema. NEUROLOGIC EXAM: Alert and oriented x 3 No focal sensory or strength deficits. Speech normal. Follows commands. PSYCHIATRIC: Mood normal. SKIN: detail exam as documented in skin assessment - Constitutional Vitals: Temp Pulse Resp BP Pulse Ox 99.0 F 83 19 142/91 97 10/03/20 07:16 10/03/20 07:16 10/03/20 07:16 10/03/20 07:16 10/03/20 07:16 General appearance: Present: mild distress, cachectic Results - Labs CBC & Chem 7: 10/03/20 08:23 10/03/20 08:23 Labs: Laboratory Last Values WBC 7.4 K/mm3 (4.5-11.0) 10/03/20 08:23 RBC 3.30 M/mm3 (3.65-5.03) L 10/03/20 08:23 Hgb 12.3 gm/dl (10.1-14.3) 10/03/20 08:23 Hct 35.8 % (30.3-42.9) 10/03/20 08:23 MCV 109 fl (79-97) H 10/03/20 08:23 MCH 37 pg (28-32) H 10/03/20 08:23 MCHC 34 % (30-34) 10/03/20 08:23 RDW 13.8 % (13.2-15.2) 10/03/20 08:23 Plt Count 125 K/mm3 (140-440) L 10/03/20 08:23 Lymph % (Auto) 9.7 % (13.4-35.0) L 10/03/20 08:23 Burnet % (Auto) 8.7 % (0.0-7.3) H 10/03/20 08:23 Eos % (Auto) 0.4 % (0.0-4.3) 10/03/20 08:23 Baso % (Auto) 0.1 % (0.0-1.8) 10/03/20 08:23 Lymph # (Auto) 0.7 K/mm3 (1.2-5.4) L 10/03/20 08:23 Burnet # (Auto) 0.6 K/mm3 (0.0-0.8) 10/03/20 08:23 Eos # (Auto) 0.0 K/mm3 (0.0-0.4) 10/03/20 08:23 Baso # (Auto) 0.0 K/mm3 (0.0-0.1) 10/03/20 08:23 Seg Neutrophils % 81.1 % (40.0-70.0) H 10/03/20 08:23 Seg Neutrophils # 6.0 K/mm3 (1.8-7.7) 10/03/20 08:23 PT 11.6 Sec. (12.2-14.9) L 10/02/20 09:44 INR 0.87 (0.87-1.13) 10/02/20 09:44 Sodium 135 mmol/L (137-145) L 10/03/20 08:23 Potassium 2.7 mmol/L (3.6-5.0) L* 10/03/20 08:23 Chloride 98.6 mmol/L (98-107) 10/03/20 08:23 Carbon Dioxide 19 mmol/L (22-30) L 10/03/20 08:23 Anion Gap 20 mmol/L 10/03/20 08:23 BUN 2 mg/dL (7-17) L 10/03/20 08:23 Creatinine 0.4 mg/dL (0.6-1.2) L 10/03/20 08:23 Estimated GFR > 60 ml/min 10/03/20 08:23 BUN/Creatinine Ratio 5 % 10/03/20 08:23 Glucose 76 mg/dL (65-100) 10/03/20 08:23 Calcium 8.7 mg/dL (8.4-10.2) 10/03/20 08:23 Magnesium 1.80 mg/dL (1.7-2.3) 10/02/20 09:44 Total Bilirubin 1.20 mg/dL (0.1-1.2) 10/03/20 08:23 Direct Bilirubin 0.5 mg/dL (0-0.2) H 10/02/20 09:44 Indirect Bilirubin 0.8 mg/dL 10/02/20 09:44 AST 39 units/L (5-40) 10/03/20 08:23 ALT 40 units/L (7-56) 10/03/20 08:23 Alkaline Phosphatase 51 units/L (35-129) 10/03/20 08:23 Total Protein 5.6 g/dL (6.3-8.2) L D 10/03/20 08:23 Albumin 3.4 g/dL (3.9-5) L 10/03/20 08:23 Albumin/Globulin Ratio 1.5 % 10/03/20 08:23 Lipase 514 units/L (13-60) H 10/03/20 08:23 Swan/IV: Voiding Method Toilet Active Medications - Current Medications Current Medications: Generic Name Dose Route Start Last Admin Trade Name Freq PRN Reason Stop Dose Admin Acetaminophen 650 mg 10/02/20 14:12 10/02/20 21:03 Acetaminophen 325 Mg Tab PO 650 mg Q4H PRN Administration Pain MILD(1-3)/Fever >100.5/BHATIA Albuterol 2.5 mg 10/02/20 14:12 Albuterol 2.5 Mg/3 Ml Nebu IH Q3HRT PRN Shortness Of Breath Sodium Chloride 1,000 mls @ 125 mls/hr 10/02/20 14:15 10/03/20 06:33 Nacl 0.9% 1000 Ml IV 125 mls/hr DIRECT SUJIT Administration Potassium Chloride 10 meq in 100 mls @ 100 mls/hr 10/03/20 10:00 Kcl 10meq/100ml IV 10/03/20 13:59 Q1H SUJIT Magnesium Sulfate 1 gm/ Sodium 52 mls @ 52 mls/hr 10/03/20 10:00 Chloride IV 10/03/20 10:59 ONCE ONE Lorazepam 2 mg 10/02/20 14:59 Lorazepam 2 Mg/Ml Vial IV Q1HR PRN [facility] 8-15 Morphine Sulfate 2 mg 10/02/20 14:12 10/03/20 08:09 Morphine 2 Mg/1 Ml Inj IV 2 mg Q4H PRN Administration Pain, Moderate (4-6) Ondansetron HCl 4 mg 10/02/20 14:12 10/03/20 04:07 Ondansetron 4 Mg/2 Ml Inj IV 4 mg Q8H PRN Administration Nausea And Vomiting Sodium Chloride 10 ml 10/02/20 22:00 10/02/20 22:00 Sodium Chloride 0.9% 10 Ml Flush Syringe IV Not Given BID SUJIT Sodium Chloride 10 ml 10/02/20 14:12 Sodium Chloride 0.9% 10 Ml Flush Syringe IV PRN PRN LINE FLUSH
--- NOTE | 2020-10-03 10:57 | Gastroenterology Consultation ---
History of Present Illness - Reason for Consult Consult date: 10/03/20 Pancreatitis Requesting physician: DAWIT CHAVARRIA - History of Present Illness The patient is a 35 yo female with chronic EtOH and tobacco abuse. She was last admitted for a similar presentation about 1 year ago. She says she has been binging EtOH in the past week (would not quantify) and came to the ER for recurrent LUQ pain, N/V, and inability to tolerate PO. She has no blood in the stools, fevers, or CP/SOB. A CCY was done 2-3 years ago for similar symptoms, though she does not recall pancreatitis before. There is no family hx of pancreatitis. She is on no new medications. She feels better today after IV fluids, and wants to try PO (no vomiting overnight). Past History Past Surgical History: cholecystectomy, , hernia repair, Other ( Hemrroidectomy 2007, ) Social history: single, smoking, alcohol abuse Family history: hypertension Medications and Allergies Allergies Allergy/AdvReac Type Severity Reaction Status Date / Time No Known Allergies Allergy Verified 10/02/20 09:11 Home Medications Medication Instructions Recorded Confirmed Last Taken Type Ciprofloxacin HCl [Ciprofloxacin 500 mg PO Q12HR #14 tab 01/06/20 Unknown Rx TAB] Hyoscyamine Subl [Levsin Sl 0.125 0.125 mg SL Q6HR #20 tab 10/01/20 Unknown Rx TAB] Ondansetron [Zofran Odt] 4 mg PO Q8HR #14 tab.rapdis 10/01/20 Unknown Rx Active Meds: Active Medications Acetaminophen (Acetaminophen 325 Mg Tab) 650 mg PO Q4H PRN PRN Reason: Pain MILD(1-3)/Fever >100.5/BHATIA Last Admin: 10/02/20 21:03 Dose: 650 mg Documented by: Albuterol (Albuterol 2.5 Mg/3 Ml Nebu) 2.5 mg IH Q3HRT PRN PRN Reason: Shortness Of Breath Sodium Chloride (Nacl 0.9% 1000 Ml) 1,000 mls @ 125 mls/hr IV DIRECT SUJIT Last Admin: 10/03/20 06:33 Dose: 125 mls/hr Documented by: Potassium Chloride (Kcl 10meq/100ml) 10 meq in 100 mls @ 100 mls/hr IV Q1H SUJIT Stop: 10/03/20 13:59 Magnesium Sulfate 1 gm/ Sodium (Chloride) 52 mls @ 52 mls/hr IV ONCE ONE Stop: 10/03/20 10:59 Lorazepam (Lorazepam 2 Mg/Ml Vial) 2 mg IV Q1HR PRN PRN Reason: CIWA-Ar 8-15 Morphine Sulfate (Morphine 2 Mg/1 Ml Inj) 2 mg IV Q4H PRN PRN Reason: Pain, Moderate (4-6) Last Admin: 10/03/20 08:09 Dose: 2 mg Documented by: Ondansetron HCl (Ondansetron 4 Mg/2 Ml Inj) 4 mg IV Q8H PRN PRN Reason: Nausea And Vomiting Last Admin: 10/03/20 04:07 Dose: 4 mg Documented by: Sodium Chloride (Sodium Chloride 0.9% 10 Ml Flush Syringe) 10 ml IV BID SUJIT Last Admin: 10/02/20 22:00 Dose: Not Given Documented by: Sodium Chloride (Sodium Chloride 0.9% 10 Ml Flush Syringe) 10 ml IV PRN PRN PRN Reason: LINE FLUSH I HAVE REVIEWED/RECONCILED MEDICATIONS Review of Systems - Review of Systems All systems: negative (as noted in the HPI.) Exam - Constitutional Vital Signs: Temp Pulse Resp BP Pulse Ox 99.0 F 83 19 142/91 97 10/03/20 07:16 10/03/20 07:16 10/03/20 07:16 10/03/20 07:16 10/03/20 07:16 General appearance: no acute distress - EENT Eyes: PERRL, EOM intact ENT: hearing intact, clear oral mucosa - Neck Neck: supple, normal ROM - Respiratory Respiratory effort: normal Respiratory: bilateral: CTA - Breasts Breasts: deferred - Cardiovascular Rhythm: regular Heart Sounds: Present: S1 & S2 Extremities: no ischemia, No edema - Gastrointestinal General gastrointestinal: Present: soft, non-tender, non-distended - Integumentary Integumentary: Present: clear, warm, dry - Neurologic Neurological: alert and oriented x3 - Labs CBC & Chem 7: 10/03/20 08:23 10/03/20 08:23 Lab Results: Laboratory Results - last 24 hr 10/03/20 10/03/20 08:23 08:23 WBC 7.4 RBC 3.30 L Hgb 12.3 Hct 35.8 MCV 109 H MCH 37 H MCHC 34 RDW 13.8 Plt Count 125 L Lymph % (Auto) 9.7 L Cook % (Auto) 8.7 H Eos % (Auto) 0.4 Baso % (Auto) 0.1 Lymph # (Auto) 0.7 L Cook # (Auto) 0.6 Eos # (Auto) 0.0 Baso # (Auto) 0.0 Seg Neutrophils % 81.1 H Seg Neutrophils # 6.0 Sodium 135 L Potassium 2.7 L* Chloride 98.6 Carbon Dioxide 19 L Anion Gap 20 BUN 2 L Creatinine 0.4 L Estimated GFR > 60 BUN/Creatinine Ratio 5 Glucose 76 Calcium 8.7 Total Bilirubin 1.20 AST 39 ALT 40 Alkaline Phosphatase 51 Total Protein 5.6 L D Albumin 3.4 L Albumin/Globulin Ratio 1.5 Lipase 514 H Assessment and Plan - Patient Problems (1) Pancreatitis, alcoholic, acute Current Visit: Yes Status: Acute Plan to address problem: - Hx of CCY (no gallstones) and hx of severe EtOH abuse. - Will slowly advance diet, but labs/vitals/CT not concerning; no severe disease. - OK to d/c home when taking PO intake. - MVI therapy, and monitor for EtOH withdrawal. - If not recently done, recommend HIV test and hepatitis panel (I ordered; could not find in chart). - Will sign off for now; please call if needed.
[2020-10-03] MEDS: POTASSIUM CHLORIDE 10 MEQ 10 MEQ/100 ML BAG IV SCH ×4 (12:16→15:40)
[2020-10-04] MEDS: MORPHINE 2 MG/1 ML INJ IV PRN ×4 (01:29→13:57)
[2020-10-04] MEDS: ONDANSETRON 4 MG/2 ML INJ IV PRN (05:04)
[2020-10-04] MEDS: SODIUM CHLORIDE 0.9% 1000 ML 1,000 ML IV SCH (05:04)
[2020-10-04 06:01] LABS: Hematocrit 35.3 % (30.3-42.9); Hemoglobin 12.3 gm/dl (10.1-14.3); Mean Corpuscular HGB Conc 35 % (30-34); Mean Corpuscular Volume 108 fl (79-97); Platelet Count 138 K/mm3 (140-440); Red Blood Count 3.28 M/mm3 (3.65-5.03); Red Cell Distribution Width 13.6 % (13.2-15.2)
[2020-10-04 06:26] LABS: Alanine Aminotransferase 33 units/L (7-56); Albumin 3.3 g/dL (3.9-5); Calcium 8.8 mg/dL (8.4-10.2); Hemolysis Index 4
[2020-10-04 06:27] LABS: BUN/Creatinine Ratio 3; Blood Urea Nitrogen 1 mg/dL (7-17)
[2020-10-04] MEDS: POTASSIUM CHLORIDE ER 20 MEQ TAB PO NR ×2 (08:27→09:45)
--- NOTE | 2020-10-04 09:05 | Gastroenterology Progress Note ---
Assessment and Plan - Patient Problems (1) Pancreatitis, alcoholic, acute Current Visit: Yes Status: Acute Plan to address problem: - Hx of CCY (no gallstones) and hx of severe EtOH abuse. - Will continue to advance diet, but labs/vitals/CT not concerning; no severe disease. - OK to d/c home when taking PO intake. - MVI therapy, and monitor for EtOH withdrawal. - HIV negative, and hepatitis panel WNL (but LFTs now normal, suspect negative). - Will sign off for now; please call if needed. Subjective Date of service: 10/04/20 Principal diagnosis: Pancreatitis Interval history: The patient tolerated a full liquid diet. She has had no vomiting, only mild abdominal soreness. She has had no diarrhea, fevers, or chills. Objective - Constitutional Vitals: Temp Pulse Resp BP Pulse Ox 97.9 F 64 1 L 143/94 94 10/04/20 06:41 10/04/20 06:41 10/04/20 06:41 10/04/20 06:41 10/04/20 06:41 General appearance: no acute distress - Respiratory Respiratory effort: normal Respiratory: bilateral: CTA - Cardiovascular Rhythm: regular Heart Sounds: Present: S1 & S2 - Gastrointestinal General gastrointestinal: Present: soft, non-tender, non-distended - Labs CBC & Chem 7: 10/04/20 04:25 10/04/20 04:25 Labs: Laboratory Results - last 24 hr 10/03/20 10/03/20 10/04/20 08:23 17:32 04:23 WBC RBC Hgb Hct MCV MCH MCHC RDW Plt Count Sodium 135 L Potassium 2.7 L* 3.8 D Chloride 98.6 Carbon Dioxide 19 L Anion Gap 20 BUN 2 L Creatinine 0.4 L Estimated GFR > 60 BUN/Creatinine Ratio 5 Glucose 76 Calcium 8.7 Total Bilirubin 1.20 AST 39 ALT 40 Alkaline Phosphatase 51 Total Protein 5.6 L D Albumin 3.4 L Albumin/Globulin Ratio 1.5 Lipase 514 H HIV 1&2 Antibody Rapid Non react HIV P24 Antigen Non react 10/04/20 10/04/20 04:25 04:25 WBC 6.1 RBC 3.28 L Hgb 12.3 Hct 35.3 MCV 108 H MCH 37 H MCHC 35 H RDW 13.6 Plt Count 138 L Sodium 137 Potassium 3.0 L D Chloride 105.0 Carbon Dioxide 22 Anion Gap 13 BUN 1 L Creatinine 0.4 L Estimated GFR > 60 BUN/Creatinine Ratio 3 Glucose 94 Calcium 8.8 Total Bilirubin 0.90 AST 32 ALT 33 Alkaline Phosphatase 53 Total Protein 5.6 L Albumin 3.3 L Albumin/Globulin Ratio 1.4 Lipase HIV 1&2 Antibody Rapid HIV P24 Antigen
[2020-10-04] MEDS ORDERED: POTASSIUM CHLORIDE ER 20 MEQ TAB PO NR (10:00)
--- NOTE | 2020-10-04 11:30 | Discharge Summary ---
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 Patient reports "I feel sick". Patient states that she had experienced abdominal pain, nausea, multiple episodes of vomiting, as well as inability to tolerate liquid and solid foods over the past 3 days with persistent symptoms over the same timeframe. Patient transported to [facility] via private vehicle for further care and evaluation of the aforementioned symptoms. The patient was seen and evaluated in the emergency department. All lab and imaging studies reviewed. Patient underwent a CT scan of the abdomen and pelvis and was found to have acute pancreatitis. Patient symptoms are complicated by intractable nausea and vomiting, as well as volume depletion. Patient admitted to medical floor and initiated on IV fluid resuscitation therapy. Patient denies fever, chills, chest pain, palpitation, productive cough, skin rash, recent ill contacts, ingestion of food/water from new or different sources, or known exposure to COVID-19. 10/03. Patient clinically stable, will try clear liquid, replace electrolytes, and recheck. Discussed with GI, no intervention needed at this time. 10/04. Patient is tolerating full liquid diets. Plan to advance diet today and if he tolerates, will discharge home. I have counseled patient to cut down on alcohol abuse and she agrees. She will be discharged to follow-up with her PCP. Disposition: TO HOME OR SELFCARE Final Discharge Diagnosis (Prints w/discharge instructions): Acute pancreatitis Time spent for discharge: 35 minutes - Discharge Diagnoses (1) Acute pancreatitis Status: Acute Qualifiers: Pancreatitis type: alcohol induced Acute pancreatitis complication: unspecified Qualified Code(s): K85.20 - Alcohol induced acute pancreatitis without necrosis or infection (2) Alcohol dependence Status: Acute Qualifiers: Substance use status: uncomplicated Qualified Code(s): F10.20 - Alcohol dependence, uncomplicated (3) Intractable vomiting Status: Acute Qualifiers: Vomiting type: unspecified Nausea presence: with nausea Qualified Code(s): R11.2 - Nausea with vomiting, unspecified Core Measure Documentation - Palliative Care Palliative Care/ Comfort Measures: Not Applicable - Core Measures Any of the following diagnoses?: none Exam - Physical Exam Narrative exam: VITAL SIGNS: Reviewed. GENERAL: Awake HEAD: No signs of head trauma. EYES: Pupils are equal. Extraocular motions intact. MOUTH: Oropharynx is normal. NECK: No adenopathy, no JVD. CHEST: Chest with diminished breath sounds bilaterally. No wheezes, rales, or rhonchi. CARDIAC: normal S1 and S2, without murmurs, gallops, or rubs. ABDOMEN: Soft, non tender and non distended. No rebound or guarding, and no masses palpated. Bowel Sounds normal. MUSCULOSKELETAL: No edema NEUROLOGIC EXAM: Alert and oriented x3. No focal neurologic deficits SKIN: No obvious lesions - Constitutional Vitals: Temp Pulse Resp BP Pulse Ox 97.9 F 64 1 L 143/94 98 10/04/20 06:41 10/04/20 06:41 10/04/20 06:41 10/04/20 06:41 10/04/20 10:00 Plan Follow up with: PRIMARY CARE, [Primary Care Provider] - 3-5 Days Prescriptions: oxyCODONE /ACETAMINOPHEN [Percocet 5/325] 1 tab PO Q6HR PRN #4 tablet PRN Reason: Pain Ondansetron [Zofran ODT TAB] 4 mg PO Q8HR PRN #8 tab.rapdis PRN Reason: Vomiting
[2020-10-04 12:09] LABS: Hepatitis B Surface Antigen Non-Reactive (Negative); Hepatitis C Virus Antibody Non-Reactive (NonReactive)
[2020-10-04 13:24] VITALS: BP 144/107
== END 2020-10-04 15:17 | disposition home or self-care (01) | DRG 438 ==
LOC: ED 09:09 → 3A 17:26
PROVIDERS: ADMIT Internal Medicine; ATTEND Internal Medicine
DX: K85.20 Alcohol induced acute pancreatitis without necrosis or infection (principal); E43 Unspecified severe protein-calorie malnutrition; E86.9 Volume depletion, unspecified; Z68.1 Body mass index [BMI] 19.9 or less, adult; F10.20 Alcohol dependence, uncomplicated; E87.6 Hypokalemia; Z79.899 Other long term (current) drug therapy
CPT/HCPCS: 36415; 74177; 80048; 80053; 80074; 80076; 81001; 83690; 83735; 84132; 84703; 85025; 85027; 85610; 87806; 96361; 96365; 96366; 96374; 96375; 96376; 99406; G0378; C9113; J2270; J2405; J3411; J3475; J3480; J7030; Q9967

== ENCOUNTER 2020-10-21 08:39 | Emergency (ER) | payer OTHER ==
[2020-10-21 08:49] VITALS: BP 109/75
--- NOTE | 2020-10-21 09:16 | Emergency Department Report ---
Upper Extremity - [facility] Chief Complaint: Extremity Problem,Nontraumatic Stated Complaint: LT ARM Upper Extremity: Left Shoulder (No known injury) Occurred When: 2 Days Mechanism: Unsure Severity: moderate Symptoms: Yes Pain with Movement, Yes Limited Range of Movement, No Deformity, No Numbness, No Weakness, No Swelling, No Bruising/Ecchymosis, No Laceration or Abrasion Other History: 35-year-old -[place] female presents to the emergency room complaining of left shoulder pain that started on Saturday when she woke up. Patient denies any injury. Patient states the pain is worse when she tries to move it or you touch it. Patient denies any swelling of the limb. Patient states she has not taken any pain medication today but took pain medication yesterday. She reports her last menstrual period was 10/04/2020. She was recently seen and discharged in the hospital on 10/04/2020 for pancreatitis. She states that is doing much better. States that she is able to eat now. ED Review of Systems ROS: Stated complaint: LT ARM Other details as noted in HPI ED Past Medical Hx - Past Medical History Hx Congestive Heart Failure: No Hx Diabetes: No Hx Pulmonary Embolism: No Hx Asthma: No Hx COPD: No Additional medical history: Diagnosed with pancreatitis yesterday - Surgical History Hx Cholecystectomy: Yes Additional Surgical History: Hemrroidectomy 2007, -2003, cholecytectomy 2005, hernia repair 1991 - Social History Smoking Status: Current Every Day Smoker Substance Use Type: Alcohol - Medications Home Medications: Home Medications Medication Instructions Recorded Confirmed Last Taken Type Ondansetron [Zofran ODT TAB] 4 mg PO Q8HR PRN #8 tab.rapdis 10/04/20 Unknown Rx oxyCODONE /ACETAMINOPHEN [Percocet 1 tab PO Q6HR PRN #4 tablet 10/04/20 Unknown Rx 5/325] traMADoL [Ultram 50 MG tab] 50 mg PO Q6HR PRN #12 tablet 10/21/20 Unknown Rx Upper Extremity Exam - Exam General: Vital signs noted. No distress. Alert and acting appropriately. Head and Torso: No HEENT Abnormality, No Neck Tenderness, No Chest/Lungs Abnormality, No Abdominal Tenderness, No Back Tenderness Shoulder Exam: Yes Shoulder Tenderness, Yes AC Joint Tenderness, No Clavicle Tenderness, No Normal Range of Motion in Shoulder, No Shoulder Deformity Arm Exam: Yes Arm/Humerus Tenderness, No Arm Deformity Elbow: No Elbow Tenderness, No Normal Range of Motion in Elbow, No Elbow Deformity Forearm: No Forearm Tenderness, No Forearm Deformity, No Pain with Pronation, No Pain with Supination Wrist: Yes Normal ROM in Wrist, No Wrist Tenderness, No Wrist Deformity, No Snuffbox Tenderness, No Pain with Axial Thumb Compression Hand: Yes Normal ROM in Digit(s), No Hand Tenderness, No Hand Deformity, No Digit Tenderness, No Digit(s) Deformity, No Tendon Dysfunction CMS Exam: No Broken Skin, No Normal Distal Pulses, No Normal Capillary Refill, No Normal Distal Sensation ED Course Vital Signs 10/21/20 08:48 Temperature 98.3 F Pulse Rate 113 H Respiratory 16 Rate Blood Pressure 109/75 O2 Sat by Pulse 98 Oximetry ED Medical Decision Making - Radiology Data Radiology results: report reviewed [facility] [address] [place] [address] XRay Report Signed Patient: AMINA OZUNA MR#: [id number] : 1985 Acct:[id number] Age/Sex: 35 / F ADM Date: 10/21/20 Loc: ED Attending Dr: Ordering Physician: FARIDEH REY Date of Service: 10/21/20 Procedure(s): XR shoulder 2+V LT Accession Number(s): [id number] cc: FARIDEH REY Fluoro Time In Minutes: LEFT SHOULDER 3 VIEWS INDICATION / CLINICAL INFORMATION: Left shoulder pain. COMPARISON: None available. FINDINGS: BONES / JOINT(S): The joint spaces are well-maintained. No significant arthritis. There is no evidence of fracture, subluxation or destructive lesion. SOFT TISSUES: No significant abnormality. ADDITIONAL FINDINGS: The visualized left lung is clear. IMPRESSION: Negative study. Signer Name: Samantha Restrepo MD Signed: 10/21/2020 9:48 AM Workstation Name: [id number] Transcribed By: RT Dictated By: Samantha Restrepo MD Electronically Authenticated By: Samantha Restrepo MD Signed Date/Time: 10/21/20947 DD/ 7 TD/TT: Print Cancel - Medical Decision Making 35-year-old -[place] female presents to the emergency room complaining of left shoulder pain that started on Saturday when she woke up. Patient denies any injury. Patient states the pain is worse when she tries to move it or you touch it. Patient denies any swelling of the limb. Patient states she has not taken any pain medication today but took pain medication yesterday. She reports her last menstrual period was 10/04/2020. She was recently seen and discharged in the hospital on 10/04/2020 for pancreatitis. She states that is doing much better. States that she is able to eat now. X-ray two-view left shoulder has been ordered. Ibuprofen 600 mg has been order ed for pain management. X-ray of left shoulder is negative for any acute findings. I have discussed with patient that she will need to follow-up with the resource protection specialist as she may need an MRI or further imaging. Patient will be discharged home on tramadol Critical care attestation.: If time is entered above; I have spent that time in minutes in the direct care o f this critically ill patient, excluding procedure time. ED Disposition Clinical Impression: Left anterior shoulder pain Disposition: DC-01 TO HOME OR SELFCARE Is pt being admited?: No Does the pt Need Aspirin: No Condition: Stable Instructions: Shoulder Pain, [id number] Additional Instructions: X-ray of left shoulder is negative for any acute fractures. I recommend following up with an resource protection specialist as she may need further imaging. Take pain medication as needed do not operate heavy machinery while taking tramadol. Prescriptions: traMADoL [Ultram 50 MG tab] 50 mg PO Q6HR PRN #12 tablet PRN Reason: Pain Referrals: PRIMARY CARE, [Primary Care Provider] - 3-5 Days SAMANTHA MANN MD [Staff Physician] - 3-5 Days JUAN ANTONIO GIRON MD [Staff Physician] - 3-5 Days Forms: Work/School Release Form(ED)
[2020-10-21] MEDS ORDERED: IBUPROFEN 600 MG TAB PO ONE (09:22)
--- NOTE | 2020-10-21 09:53 | XRay Report ---
LEFT SHOULDER 3 VIEWS INDICATION / CLINICAL INFORMATION: Left shoulder pain. COMPARISON: None available. FINDINGS: BONES / JOINT(S): The joint spaces are well-maintained. No significant arthritis. There is no evidenc e of fracture, subluxation or destructive lesion. SOFT TISSUES: No significant abnormality. ADDITIONAL FINDINGS: The visualized left lung is clear. IMPRESSION: Negative study. Signer Name: Boogie Restrepo MD Signed: 10/21/2020 9:48 AM Workstation Name: [id number]
== END 2020-10-21 11:13 | disposition home or self-care (01) ==
LOC: ED 08:39
DX: M25.512 Pain in left shoulder (principal); F17.200 Nicotine dependence, unspecified, uncomplicated; Z90.49 Acquired absence of other specified parts of digestive tract; Z98.890 Other specified postprocedural states; Z79.899 Other long term (current) drug therapy